=== PATIENT | female | born 1970 | race Caucasian/White ===

== ENCOUNTER 2025-05-28 08:53 | Outpatient (REF) | payer OTHER, SELFPAY ==
--- NOTE | ~2025-05-28 | XR_ITS ---
EXAMINATION: XR ANKLE, left CLINICAL INFORMATION: M25.572 - Pain in left ankle and joints of left foot COMPARISON: None available. TECHNIQUE: AP, lateral, and mortise views lower extremity joint, ankle. FINDINGS: Ankle mortise is congruent. There is no widening of the syndesmosis. Talar dome is intact. There are small to medium sized Achilles tendon and plantar fascial calcaneal enthesophyte(s). XR/XR ankle LT min 3V IMPRESSION: There are calcaneal spurs, a nonspecific finding. Electronically signed by: Alexander Mullins MD 05/28/2025 11:21 AM EST
--- NOTE | ~2025-05-28 | XR_ITS ---
Exam: XR FOOT 3 OR MORE VIEWS BILATERAL, bilateral foot x-rays TECHNIQUE: AP, OBL and lateral views lower extremity, bilateral feet INDICATION: M72.2 - Plantar fascial fibromatosis COMPARISON: None available. FINDINGS: RIGHT FOOT: Zidgd-lg-thverspn sized calcaneal enthesophytes are present at the Achilles tendon and plantar fascial attachments onto calcaneus. No acute fractures are identified. No degenerative joint disease is seen. There is no joint diastases or malalignment. LEFT FOOT: Small medium sized calcaneal enthesophytes are evident at the Achilles tendon and plantar fascial attachments. No acute fractures are identified. No degenerative joint disease is seen. There is no joint diastases or malalignment. XR/XR Foot Luis 3V IMPRESSION: Right foot: There calcaneal spurs at the Achilles tendon and plantar fascial attachments, a nonspecific finding. Left foot: There calcaneal spurs at the Achilles tendon and plantar fascial attachments, a nonspecific finding. Electronically signed by: Alexander Mullins MD 05/28/2025 11:26 AM GARCÍA
== END 2025-05-28 08:54 | disposition home or self-care (01) ==
LOC: HO.XRAY 08:53
PROVIDERS: PCP Internal Medicine; Visit Provider Student in an Organized Health Care Education/Training Program
DX: S93.402A Sprain of unspecified ligament of left ankle, initial encounter (principal); M72.2 Plantar fascial fibromatosis; M79.671 Pain in right foot; M79.672 Pain in left foot; M25.572 Pain in left ankle and joints of left foot; M25.371 Other instability, right ankle; M25.372 Other instability, left ankle; M77.31 Calcaneal spur, right foot; M77.32 Calcaneal spur, left foot; X58.XXXA Exposure to other specified factors, initial encounter; Y93.02 Activity, running
CPT/HCPCS: 73610; 73630

== ENCOUNTER 2025-05-28 08:53 | Outpatient (AMB) | payer OTHER, SELFPAY ==
--- OUTSIDE RECORDS SUMMARY | 2024-05-29 04:00 | XMS_ITS ---
Author Organization Milvia Iqbal MD Address [address] [place] [phone] Care Team Providers Care Commercial Leasing Agent Name Role Phone Milvia Iqabl Primary Care Provider REASON FOR VISIT 6m f/u SVT Encounters Encounter Location Date Provider Diagnosis Milvia Iqbal MD [address] JASEN TE [address] [place] [phone] 05/29/2024 Milvia Iqbal Plan Of Treatment Next Appt Details Provider Name:Milvia Iqbal , 12/06/2025 03:45:00 PM, [address] [place] [address], [phone], Progress Notes * JACOBDion CROUCHVipulOB:1970 (54 yo F)Acc No.[id number]:05/29/2024 Progress Notes Patient: Myra VICENTE Provider: Jose Manuel Iqbal MD :1970 A ge:53 Y S ex:Female Date:05/29/2024 Address:[address] [place], [place] [phone] Subjective: * Chief Complaints: * 1 . [...] Electronic signature of Kailyn Iqbal MD on 05/28/2025 at 09:01 AM EST Sign off status: Pending * Provider: Jose Manuel Iqbal MD Date: 07/29/2023 Generated for Jose Enrique love/Marybeth/Red on: 07/28/2024 09:01 AM EST
--- OUTSIDE RECORDS SUMMARY | 2024-11-05 03:15 | XMS_ITS ---
Author Organization [facility] [address] [address] Address [address] [place] [address] Care Team Providers Care Racing Board Marker Name Role Phone JOSEFINA RALPH Primary Care Provider [phone] DONYA KNOX Unavailable [phone] Encounters Encounter Location Date Provider Diagnosis [facility] [address] [facility] [address] [place] [phone] 11/05/2024 DONYA KNOX Plan Of Treatment No Information Progress Notes * Felicia BROWNOB:1970 (54 yo F)Acc No.[id number]:11/05/2024 Patient: Myra Dorantes Provider: Nirav KNOX NP :1970 A ge:53 Y S ex:Female Date:11/05/2024 Address:[address] [place], [place] [phone] Pcp:JOSEFINA RALPH * Electronic signature of RAY KNOX on 05/28/2025 at 09:02 AM EST Sign off status: Pending * Provider: Nirav KNOX NP Date: 0 11/05/2024 Generated for Printi ng/Faxing/eTransmitting on: 1 07/28/2024 09:02 AM EST
--- OUTSIDE RECORDS SUMMARY | 2025-02-12 03:30 | XMS_ITS ---
Author Organization [facility] [address] Address [address] [place] [address] Care Team Providers Care User Interface Artist Name Role Phone JOSEFINA RALPH Primary Care Provider DONYA KNOX Unavailable [phone] Encounters Encounter Location Date Provider Diagnosis [facility] [address] [facility] [address] [place] [phone] 02/12/2025 DONYA KNOX Plan Of Treatment No Information Progress Notes * Felicia BROWNOB:1970 (54 yo F)Acc No.[id number]:02/12/2025 Patient: Dion Dorantesen Provider: Nirav KNOX NP :1970 A ge:54 Y S ex:Female Date:02/12/2025 Address:[address] [place], [place] [phone] Pcp:JOSEFINA RALPH * Electronic signature of RAY KNOX on 05/28/2025 at 09:01 AM EST Sign off status: Pending * Provider: Nirav KNOX NP Date: 0 02/12/2025 Generated for Printi ng/Faxing/eTransmitting on: 1 07/28/2024 09:01 AM EST
--- OUTSIDE RECORDS SUMMARY | 2025-05-28 09:01 | XMS_ITS | Clinical Summary ---
Author Organization [facility] Address [address] [place] [address] Care Team Providers Care Electric Scoop Operator Name Role Phone Milvia Iqbal MD Primary Care Provider [phone] Allergies Active Allergy Reactions Criticality Noted Date Comments Penicillins 04/16/2017 Medications Medication Sig Dispensed Refills Start Date End Date Status Cholecalciferol (VITAMIN D3) 2000 UNITS capsule TAKE ONE CAPSULE BY MOUTH EVERY DAY 3 01/11/2017 Active omeprazole (PRILOSEC) 20 MG capsule Take 20 mg by mouth 2 (two) times a day. 1 03/08/2017 Active levETIRAcetam (KEPPRA) 250 MG tablet Take 250 mg by mouth 2 (two) times a day. 0 Active levETIRAcetam (KEPPRA) 1000 MG tablet Take 1,000 mg by mouth. 0 Active sulfamethoxazole-trime thoprim (BACTRIM DS) 800-160 MG per tablet Take 1 tablet by mouth 2 (two) times a day. 0 Active phenazopyridine (PYRIDIUM) 200 MG tablet Take 200 mg by mouth 3 (three) times a day. 0 06/29/2021 Active nitrofurantoin, macrocrystal-monohydra te, (MACROBID) 100 MG capsule TAKE ONE CAPSULE BY MOUTH TWICE A DAY FOR 7 DAYS 0 06/05/2021 Active metFORMIN (GLUCOPHAGE) tablet 500 mg 500 mg. 0 05/28/2016 Active ibuprofen 800 MG tablet Take 800 mg by mouth. 0 Active Lgqxbyeqps-LBDA-Fnixjm ne 50-300-40 MG CAPS 1 capsule by mouth, as needed, every 4 hours 0 05/28/2016 Active Hospital, Clinic, or Other Facility Administered Medication Ordered Dose Route Frequency Start Date End Date Status lidocaine (PF) (XYLOCAINE-MPF) 1 % injection 10 mgIndications:Left shoulder pain, unspecified chronicity,Subacromial bursitis of left shoulder joint 10 mg IX Once 08/16/2021 Active Active Problems Problem Noted Date Diagnosed Date Nontraumatic incomplete tear of left rotator cuf f 12/13/2021 Impingement syndrome of left shoulder 12/13/2021 Subacromial bursitis of left shoulder joint 03/2022 Chronic right shoulder pain 07/16/2017 Adhesive capsulitis of right shoulder 07/16/2017 Family History Medical History Relation Name Comments Hypertension Brother Cancer Father Arthritis Mother Diabetes Mother Hypertension Mother Relation Name Status Comments Brother Father Mother Social History Tobacco Use Types Packs/Day Years Used Date Smoking Tobacco: Never Smokeless Tobacco: Never Alcohol Use Standard Drinks/Week Comments Yes 0 (1 standard drink = 0.6 oz pur e alcohol) social Sex and Gender Information Value Date Recorded Sex Assigned at Not on file Gender Identity Not on file Sexual Orientation Not on file Job Start Date Occupation Industry Not on file Not on file Not on file Last Filed Vital Signs Vital Sign Reading Time Taken Comments Blood Pressure - - Pulse - - Temperature - - Respiratory Rate - - Oxygen Saturation - - Inhaled Oxygen Concentration - - Weight 84.4 kg (186 lb) 06/18/2022 12:56 PM EST Height 175.3 cm (5' 9 ) 06/18/2022 12:56 PM EST Body Mass Index 27.47 06/18/2022 12:56 PM EST Plan of Treatment Health Maintenance Due Date Last Done Comments Hepatitis B Vaccines (1 of 3 - 3-dose series) 1970 Hepatitis C Screening 1970 COVID-19 Vaccine (#1) 06/25/1972 Depression Screening 1983 BMI Counseling 12/24/1989 Preventative Health Evaluation 12/24/1989 DTap / Tdap / Td (1 - Tdap) 12/24/1990 Cervical Cancer Screening (P ap Smear) 12/24/1992 Colon Cancer Screening (Colonoscopy) 12/24/2016 Breast Cancer Screening (Mammogram) 12/24/2021 Shingrix-Zoster Vaccine (1 of 2) 12/24/2021 Influenza Vaccine (#1) 2025 Pneumococcal Vaccine Aged Out No long er eligible based on patient's age to complete this topic RSV Ped < 20 months Aged Out No longe r eligible based on patient's age to complete this topic Care Teams Electric Scoop Operator Relationship Specialty Start Date End Date Milvia Iqbal MD [address] [address] PCP - General Internal Medicine 03/18/17
--- OUTSIDE RECORDS SUMMARY | 2025-05-28 09:01 | XMS_ITS ---
Author Name [facility] Organization Unknown Care Team Organization Name Specialty Phone Email Start Date End Da joan [facility] Miguel Rouse Primary [facility] 05/15/2022 4
--- OUTSIDE RECORDS SUMMARY | 2025-05-28 09:01 | XMS_ITS | Clinical Summary ---
Author Organization [address] Address [address] [place] [phone] Phone Care Team Providers Care Field Aide Name Role Phone Miliva Iqbal MD Primary Care Provider [phone] Surgical History Surgery Date Site/Laterality Comments APPENDECTOMY PROCEDURE: HISTORICAL APPENDECTOMY HERNIA REPAIR PROCEDURE: HISTORICAL HERNIA REPAIR/ING Medical History Medical History Date Comments Complex partial epilepsy (CM S/HCC V24, CMS/HCC V28) DX:Complex partial epilepsy (HCC) PCOS (polycystic ovarian syndrome) DX:PCOS (polycystic ovarian syndrome) Complex partial epilepsy (CM S/HCC V24, CMS/HCC V28) DX:Complex partial epilepsy (HCC) Family History Medical History Relation Name Comments Other: AFIB Father Relation Name Status Comments Father Social History Tobacco Use Types Packs/Day Years Used Date Smoking Tobacco: Never Smokeless Tobacco: Never Alcohol Use Standard Drinks/Week Comments Yes 0 (1 standard drink = 0.6 oz pur e alcohol) Comments No Sex and Gender Information Value Date Recorded Sex Assigned at Not on file Legal Sex Female 8:55 PM EST Gender Identity Not on file Sexual Orientation Not on file Obstetrics History Para Term AB IAB SAB Ectopic Multiple Livin g Live Births 2 Last Filed Vital Signs Vital Sign Reading Time Taken Comments Blood Pressure 110/70 08/06/2023 10:29 AM EST Si tting L Arm Pulse 79 08/06/2023 10:29 AM EST Temperature - - Respiratory Rate - - Oxygen Saturation - - Inhaled Oxygen Concentration - - Weight 81.6 kg (180 lb) 01/25/2025 7:39 AM EDT Height 175.3 cm (5' 9 ) 01/25/2025 7:39 AM EDT Body Mass Index 26.58 01/25/2025 7:39 AM EDT Plan of Treatment Health Maintenance Due Date Last Done Comments DTaP,Tdap,and Td Vaccines (1 - Tdap) 12/24/1990 HIV Screening 08/07/2019 Social Influencers of Health Screening 08/07/2019 Pneumococcal Vaccine: 50+ Years (1 of 1 - PCV) 12/24/2021 Zoster Vaccines (1 of 2) 12/24/2021 Depression Screening 07/08/2024 Hepatitis B Vaccines (2 of 3 - 19+ 3-dose series) 02/18/2025 01/21/2025 COVID-19 Vaccine (3 - 2024-26 season) 2025 11/10/2020, 10/20/2020 Influenza Vaccine (#1) 2025 05/25/2020, 2014 Colorectal Cancer Screening: Colonoscopy 11/28/2026 Breast Cancer Screening 01/25/2027 01/26/20, 01/15/2023, 01/12/2022, Additional history exists Cholesterol Screening (Lipid Panel) 10/05/2029 10/05/2024 Cervical Cancer Screening: HPV 02/02/2030 02/02/2025 RSV Immunization Adult Patients (1 - 1-dose 75+ series) 12/24/2046 Hepatitis C Screening Completed 10/05/2024 MMR Vaccines Aged Out 01/21/2025 No longer eligi ble based on patient's age to complete this topic HIB Vaccines Aged Out No longer eligi ble based on patient's age to complete this topic HPV Vaccines Aged Out No longer eligi ble based on patient's age to complete this topic Hepatitis A Vaccines Aged Out No long er eligible based on patient's age to complete this topic IPV Vaccines Aged Out No longer eligi ble based on patient's age to complete this topic Meningococcal ACWY Vaccine Aged Out N o longer eligible based on patient's age to complete this topic Meningococcal B Vaccine Aged Out No l onger eligible based on patient's age to complete this topic RSV Immunization Patients Under 20 months Aged Out No longer eligible based on patient's age to complete this topic Varicella Vaccines Aged Out No longer eligible based on patient's age to complete this topic Procedures Procedure Name Priority Date/Time Associated Diagnosis Comments HPV WITH REFLEX GENOTYPE Routine 02/02/2025 12:00 AM EDT Encounter for gynecological examination (general) (routine) without abnormal findings MG MAMMO DIGITAL SCREENING W MARVIN BILAT Routine 01/25/2025 7:39 AM EDT Encounter for screening mammogram for breast cancer LIPID PANEL WITH REFLEX TO DIRECT LDL Routine 10/05/2024 8:03 AM EDT Polycystic ovaries Screening for lipoid disorders Avitaminosis D Routine general medical examination at a health care facility Screening for thyroid disorder Screening for diabetes mellitus HEPATITIS C ANTIBODY Routine 10/05/2024 8:02 AM EDT Polycystic ovaries Screening for lipoid disorders Avitaminosis D Routine general medical examination at a health care facility Screening for thyroid disorder Screening for diabetes mellitus Screening examination for poliomyelitis from Last 3 Months or Most Recently Relevant to Health Maintenance Results * HPV with reflex genotype (02/02/2025 12:00 AM EDT) HPV Negative Negative LAB MICROBIOLOGY METHOD 02/10/2025 1:46 PM EDT [facility] Brushing/Spatula Cervix uteri structure / Unknown 02/02/2025 02/08/2025 12:11 PM EDT us Vaishnavi Pereyra MD LAB MOLECULAR DIAGNOSTIC S ORDERABLES Final Result [facility] [address] [place] [id number], * MG Mammo Digital Screening w Marvin bilat (01/25/2025 7:39 AM EDT) Anatomical Region Laterality Modality Breast Bilateral Mammography 01/25/2025 3:41 PM EDT Impressions 01/25/2025 3:42 PM EDT No evidence of breast malignancy. BI-RADS CATEGORY: 1 - NEGATIVE RECOMMENDATION: Screening bilateral mammogram is recommended in 1 year. Mammo Location: [facility], [address] [place], [place], [address], . -------- FINAL REPORT -------- Dictated By: Janette Mckeon Dictated Date: 01/25/2025 15:41 ET Assigned Physician: Janette Mckeon Reviewed and Electronically Signed By: Janette Mckeon Signed Date: 01/25/2025 15:42 ET Workstation ID: [id number] Transcribed By: Self Edit Transcribed Date: 01/25/2025 15:41 ET Narrative 01/25/2025 3:42 PM EDT CLINICAL: 54 years old, Female, routine annual exam. COMPARISON: 01/23/2024, 01/14/2023, 01/12/2022, 01/11/2021 and 01/06/2020 TECHNIQUE: Bilateral MLO and CC views were obtained digitally with 3-D mammogram (digital breast tomosynthesis). Computer-aided detection was utilized in evaluation of this exam (CAD). FINDINGS: There is no evidence of suspicious mass or architectural distortion. No worrisome calcifications are evident. There has been no significant change from prior exam(s). BREAST DENSITY: B - There are scattered areas of fibroglandular density. Procedure Note Janette Mckeon MD - 01/25/2025 CLINICAL: 54 years old, Female, routine annual exam. COMPARISON: 01/23/2024, 01/14/2023, 01/12/2022, 01/11/2021 and 01/06/2020 TECHNIQUE: Bilateral MLO and CC views were obtained digitally with 3-Dmammogram (digital breast tomosynthesis). Computer-aided detection wasutilized in evaluation of this exam (CAD). FINDINGS: There is no evidence of suspicious mass or architectural distortion. Noworrisome calcifications are evident. There has been no significantchange from prior exam(s). BREAST DENSITY: B - There are scattered areas of fibroglandular density. IMPRESSION: No evidence of breast malignancy. BI-RADS CATEGORY: 1 - NEGATIVE RECOMMENDATION: Screening bilateral mammogram is recommended in 1 year. Mammo Location: [facility], [address] [place] [address], [id number], . -------- FINAL REPORT -------- Dictated By: Janette Mckeon Dictated Date: 01/25/2025 15:41 ET Assigned Physician: Janette Mckeon Reviewed and Electronically Signed By: Janette Mckeon Signed Date: 01/25/2025 15:42 ET Workstation ID: [id number] Transcribed By: Self Edit Transcribed Date: 01/25/2025 15:41 ET us Self Referral S[facility] IMG BI PROCEDURES Final Resul t * (ABNORMAL) Lipid panel with reflex to direct LDL (10/05/2024 8:03 AM EDT) Cholesterol 204(H) 0 - 200 mg/dL LAB CHEMISTRY METHOD 10/05/2024 9:21 AM EDT [facility] Triglycerides 52 0 - 150 mg/dL LAB CHEMISTRY METHOD 10/05/2024 9:21 AM EDT [facility] HDL 73 >=40 mg/dL LAB CHEMISTRY METHOD 10/05/2024 9:21 AM EDT [facility] LDL Calculated 121(H) 0 - 100 mg/dL LAB CHEMISTRY METHOD 10/05/2024 9:21 AM EDT [facility] VLDL Cholesterol Boris 10.4 mg/dL LAB CHEMISTRY METHOD 10/05/2024 9:21 AM EDT [facility] Non HDL Chol. (LDL+VLDL) 131 <145 mg/dL LAB CHEMISTRY METHOD 10/05/2024 9:21 AM EDT [facility] Chol/HDL Ratio 2.8 0.0 - 4.4 LAB CHEMISTRY METHOD 10/05/2024 9:21 AM T [facility] Blood Venous blood specimen / Unknown Venipuncture / Unknown 10/05/2024 8:03 AM EDT 10/05/2024 8:10 AM EDT us Victoria Armas [employer] LAB BLOOD ORDERABLES Final Re sult [facility] [address] [place] [address], [place] [phone] * Hepatitis C antibody (10/05/2024 8:02 AM EDT) Hepatitis C Antibody Negative Negative LAB CHEMISTRY METHOD 10/05/2024 11:00 AM EDT [facility] Blood Venous blood specimen / Unknown Venipuncture / Unknown 10/05/2024 8:02 AM EDT 10/05/2024 8:10 AM EDT us Milvia Iqbal MD LAB BLOOD ORDERABLES Final Res ult [facility] [address] [place] [address], [place] [phone] from Last 3 Months or Most Recently Relevant to Health Maintenance Insurance [employer] Advance Directives Documents on File Type Date Recorded Patient Marker Delivery Expl anation Health Care Decision (hx) 03/02/2020 AD [place] DIRECTIVE Health Care Decision (hx) 03/02/2020 AD PARISI DIRECTIVE Health Care Decision (hx) 03/02/2020 AD PARISI DIRECTIVE Health Care Decision (hx) 03/02/2020 AD PARISI DIRECTIVE Health Care Decision (hx) 03/02/2020 AD PARISI DIRECTIVE Health Care Decision (hx) 03/02/2020 AD PARISI DIRECTIVE Health Care Decision (hx) 03/02/2020 AD PARISI DIRECTIVE Health Care Decision (hx) 03/02/2020 AD PARISI DIRECTIVE Health Care Decision (hx) 03/02/2020 AD PARISI DIRECTIVE Health Care Decision (hx) 03/02/2020 AD PARISI DIRECTIVE Health Care Decision (hx) 03/02/2020 AD PARISI DIRECTIVE Health Care Decision (hx) 03/02/2020 AD PARISI DIRECTIVE Health Care Decision (hx) 03/02/2020 AD PARISI DIRECTIVE Health Care Decision (hx) 03/02/2020 AD PARISI DIRECTIVE Health Care Decision (hx) 03/02/2020 AD PARISI DIRECTIVE Health Care Decision (hx) 03/02/2020 AD PARISI DIRECTIVE Health Care Decision (hx) 03/02/2020 AD PARISI DIRECTIVE Health Care Decision (hx) 03/02/2020 AD PARISI DIRECTIVE Health Care Decision (hx) 03/02/2020 AD PARISI DIRECTIVE Health Care Decision (hx) 03/02/2020 AD PARISI DIRECTIVE Care Teams Field Aide Relationship Specialty Start Date End Date Milvia Iqbal MD [address] [place] [address] PCP - General Internal Medicine 11/18/12
--- OUTSIDE RECORDS SUMMARY | 2025-05-28 09:02 | XMS_ITS | Patient Health Record ---
Author Organization [facility] [address] Address [address] [place] [address] Care Team Providers Care Hospital Manager Name Role Phone RAMO JOSEFINA Primary Care Provider DONYA KNOX Unavailable [phone] PRATIBHA SMITH Unavailable [phone] Allergies Allergen (clinical drug ingredient) Drug/Non Drug Allergy documented on EMR Reaction Allergy Type Onset Date Status pcn (uncoded) Unknown Allergy Active Results Component Value Reference Range Flag Notes HEPATITIS C ANTIBODY Reviewed date:10/05/2024 04:47:52 PM Interpretation: Performing Lab: Notes/Report: Hepatitis C Antibody Negative Negative LUTEINIZING HORMONE Reviewed date:10/05/2024 04:48:16 PM Interpretation: Performing Lab: Notes/Report: UNTREATED 8.6 - 61.8 ON HRT 1.1 - 52.4 POSTMENOPAUSAL: LUTEAL PHASE 0.6 - 13.5 MIDCYCLE PEAK 22.8 - 76.1 FOLLICULAR PHASE 1.9 - 12.8 FEMALES NORMALLY MENSTRUATING: LH REFERENCE RANGES (MIU/ML) Luteinizing Hormone 31.6 See Comment mIU/mL FOLLICLE STIMULATING HORMONE Reviewed date:10/05/2024 04:48:10 PM Interpretation: Performing Lab: Notes/Report: Follicle Stimulating Hormone 75.2 See Comment mIU/mL FSH REFERENCE RANGES (MIU/ML) FEMALES NORMALLY MENSTRUATING: FOLLICULAR PHASE 2.3 - 12.6 MIDCYCLE PEAK 5.2 - 17.5 LUTEAL PHASE 1.7 - 9.5 POSTMENOPAUSAL: ON HRT 5.9 - 72.8 UNTREATED 12.7 - 132.2 HEMOGLOBIN A1C Reviewed date:10/05/2024 04:47:40 PM Interpretation: Performing Lab: Notes/Report: Hemoglobin A1C 5.2 <6.5 % Mean Bld Glu Estim. 103 URINALYSIS WITH REFLEX MICRO SCOPIC AND CULTURE Reviewed date:10/05/2024 04:47:48 PM Interpretation: Performing Lab: Notes/Report: Specific [place] Urine 1.014 1.003-1.030 pH, Urine 6.0 5.5, 6.0, 6.5, 7.0 pH Leukocytes, Urine 1+ Negative A Nitrite, Urine Negative Negative Protein, Urine Negative Glucose, Urine Negative Ketones, Urine Negative Urobilinogen, Urine 0.2 Bilirubin, Urine Negative Negative Blood, Urine Negative Negative RBC, Urine 0.7 0-4 /HPF WBC, Urine 12.0 0-4 /HPF H Squamous Epithelial, Urine 30 0-60 /LPF Bacteria, Urine Negative Negative /HPF Hyaline Casts, Urine 0.4 0-3 /LPF Non-Squamous Epithelial, Urine 2-5 Transitional epithelial cells. THYROID STIMULATING HORMONE Reviewed date:10/05/2024 04:48:10 PM Interpretation: Performing Lab: Notes/Report: TSH 0.95 0.40-4.00 mcIU/mL THYROXINE FREE Reviewed date:10/05/2024 04:48:10 PM Interpretation: Performing Lab: Notes/Report: Free T4 1.26 0.70-1.80 ng/dL VITAMIN D 25 HYDROXY Reviewed date:10/05/2024 04:48:04 PM Interpretation: Performing Lab: Notes/Report: Vit D, 25-Hydroxy 25.3 30.0-80.0 ng/mL L CBC WITH AUTO DIFFERENTIAL Reviewed date:10/05/2024 04:52:59 PM Interpretation: Performing Lab: Notes/Report: WBC 3.3 4.8-10.8 K/mcL L RBC 4.10 3.80-4.80 M/mcL Hemoglobin 12.2 11.5-16.0 g/dL Hematocrit 38.9 35.0-47.0 % MCV 95.6 79.0-98.0 FL MCH 30.0 27.0-32.0 pcg MCHC 31.4 32.0-37.0 g/dL L RDW 12.5 11.0-15.0 % Platelets 155 130-400 K/mcL MPV 12.1 7.0-11.0 FL H NRBC 0.0 <1.0 % NRBC Absolute 0.00 <0.10 K/mcL Neutrophils Relative 53.6 Lymphocytes Relative 29.3 Monocytes Relative 11.1 Eosinophils Relative 4.8 Basophils Relative 0.9 Immature Granulocytes Relative 0.3 Neutrophils Absolute 1.79 1.50-7.00 K/mcL Lymphocytes Absolute 0.98 1.00-5.00 K/mcL L Monocytes Absolute 0.37 0.20-1.00 K/mcL Eosinophils Absolute 0.16 0.00-0.50 K/mcL Basophils Absolute 0.03 0.00-0.20 K/mcL Immature Granulocytes Absolute 0.01 0.00-0.03 K/mcL DEHYDROEPIANDROSTERONE Reviewed date:10/11/2024 01:21:03 PM Interpretation: Performing Lab: Notes/Report: DHEA (Dehydroepiandrosterone), Unconjugated, LC/MS/MS 113 Adult Female Reference Ranges Pre-Menopausal Mid Follicular: 385-1143 ng/dL Surge: 345-2030 ng/dL Mid Luteal: 414-1295 ng/dL Post-Menopausal 77-851 ng/dL This test was developed and its analytical performance characteristics have been determined by [facility]. It has not been cleared or approved by the FDA. This assay has been validated pursuant to the CLIA regulations and is used for clinical purposes. Test Performed at: [facility] [address] [address] Nadia Leyva MD, PhD, JOSE ANTIMULLERIAN HORMONE Reviewed date:10/07/2024 01:43:49 PM Interpretation: Performing Lab: Notes/Report: Anti Mullerian Hormone (AMH) <0.08 No reference range available for females under 18 years or over 45 years. Test performed at [facility] [place] [address] Brionna Rand MD, PhD - [employer] ESTRADIOL Reviewed date:10/05/2024 04:48:16 PM Interpretation: Performing Lab: Notes/Report: Estradiol <11 See below pcg/mL ESTRADIOL REFERENCE RANGES (PG/ML) FEMALES NORMALLY MENSTRUATING: FOLLICULAR PHASE 21.4 - 164.8 MIDCYCLE PEAK 49.9 - 367.2 LUTEAL PHASE 40.2 - 259.0 POSTMENOPAUSAL: ON HRT <11 - 462.1 UNTREATED <11 - 58.3 Fulvestrant has been shown to cross-react with the estradiol assay and cause falsely elevated results. For patients being treated with fulvestrant, Estradiol ultrasensitive should be ordered. This test is performed by LC/MS and is not expected to show cross reactivity to fulvestrant. COMPREHENSIVE METABOLIC PANE L Reviewed date:10/05/2024 04:48:20 PM Interpretation: Performing Lab: Notes/Report: Sodium 142 133-145 mmol/L Potassium 4.5 3.5-5.5 mmol/L Chloride 107 96-110 mmol/L CO2 31 21-32 mmol/L Anion Gap 4 3-11 Glucose 84 70-100 mg/dL BUN 18 5-25 mg/dL Creatinine 0.73 0.50-1.10 mg/dL eGFR 99 >=60 mL/min/1.73m2 Calculation based on the Chronic Kidney Disease Epidemiology Collaboration (CKD-EPI) equation refit without adjustment for race. BUN/Creatinine Ratio 24.7 Calcium 9.4 8.5-10.5 mg/dL AST (SGOT) 33 10-42 unit/L ALT (SGPT) 53 10-60 unit/L Alkaline Phosphatase 79 42-121 unit/L Total Protein 6.4 6.0-8.0 g/dL Albumin 4.0 3.2-5.0 g/dL Total Bilirubin 0.4 0.0-1.4 mg/dL LIPID PANEL WITH REFLEX TO D IRECT LDL Reviewed date:10/05/2024 04:53:07 PM Interpretation: Performing Lab: Notes/Report: Cholesterol 204 0-200 mg/dL H Triglycerides 52 0-150 mg/dL HDL 73 >=40 mg/dL LDL Calculated 121 0-100 mg/dL H VLDL Cholesterol Boris 10.4 Non HDL Chol. (LDL+VLDL) 131 <145 mg/dL Chol/HDL Ratio 2.8 0.0-4.4 Reason For Referral No Information Medications Medication SIG (Take, Route, Fr equency, Duration) Notes Start Date End Date Status Mounjaro 10 MG/0.5ML Solution Pen-injector 10mg Subcutaneous weekly; Duration: 30 days Active Zepbound 10 MG/0.5ML Solution Auto-injector INJECT 1 PEN SUBCUTANEOUSLY ONCE A WEEK; Duration: 28 Active Keppra 500 MG Tablet 1 tablet Orally meseret ry 12 hrs; Duration: 30 day(s) Active Metoprolol Succinate ER 25 MG Tablet Extended Release 24 Hour 1 tablet Orally Once a day Active Social History Tobacco Use: Social History Observation Description Date Details (start date - stop date) Never Smoker NA - NA Social History Drugs/Alcohol: Social Info Question Answer Notes Drugs Have you used drugs other than those for medical reasons in the past 12 months? No Tobacco Use: Social Info Question Answer Notes Tobacco Use/Smoking Are you a nonsmoker Additional Details Category Social Info Options Details Drugs/Alcohol: Do you smoke marijuana? De nies Do you drink alcohol? No Problems Problem Type SNOMED Code ICD Code Onset Dates Problem Status W/U Status Risk Notes Problem Hypothyroidism (10036566) Hypothyroidism, unspecified (E03.9) Active confirmed Problem Vitamin D deficiency (71460478) Vitamin D deficiency, unspecified (E55.9) Active confirmed Problem Overweight (949537784) Overweight (E66.3) Active confirmed Problem Obesity (841464541) Other obesity (E66.8) Active confirmed Problem Hyperlipidemia (52626594) Hyperlipidemia, unspecified (E78.5) Active confirmed Problem Paroxysmal atrial fibrillation (765436305) Paroxysmal atrial fibrillation (I48.0) Active confirmed Problem Chronic fatigue syndrome (disorder) (31907763) Chronic fatigue, unspecified (R53.82) Active confirmed Problem Body mass index 30+ - obesity (817016421) Body mass index (BMI) 30.0-30.9, adult (Z68.30) Active confirmed Problem Body mass index 30.00 to 34.99 (260220962866645) Body mass index (BMI) 31.0-31.9, adult (Z68.31) Active confirmed Problem Adult health examination (580616133) Adult general medical exam (Z00.00) Active confirmed Problem Vitamin D deficiency (66397162) Vitamin D deficiency (E55.9) Active confirmed Problem Seizure disorder (982994443) Seizure disorder (G40.909) Active confirmed Problem Diabetes mellitus screening (887151270) Diabetes mellitus screening (Z13.1) Active confirmed Problem Use of anticoagulation (728196037) Chronic anticoagulation (Z79.01) Active confirmed Problem Polycystic ovary syndrome (disorder) (120694929) PCOS (polycystic ovarian syndrome) (E28.2) Active confirmed Problem Overweight (271391747) Overweight (BMI 25.0-29.9) (E66.3) Active confirmed Problem Thyromegaly (7010946) Thyromegaly (E01.0) Active confirmed Problem Atrial fibrillation (18523517) Atrial fibrillation with RVR (I48.91) Active confirmed Problem Perimenopause (206100955) Perimenopause (N95.1) Active confirmed Problem Endocrine/metaboli c screening (607934349) Encounter for screening for endocrine disorder (Z13.29) Active confirmed Problem Lipid screening (581151016) Lipid screening (Z13.220) Active confirmed Vital Signs Heart Rate 74 /min 12/31/2024 Oximetry 99 % 12/31/2024 Blood pressure diastolic 76 mm Hg 12/31/2024 Height 69 in 12/31/2024 Blood pressure systolic 112 mm Hg 12/31/2024 Weight 186.3 lbs 12/31/2024 BMI 27.51 kg/m2 12/31/2024 Encounters Encounter Location Date Provider Diagnosis [facility] [address] [address] 07/16/2024 PRATIBHA SMITH Overweight E66.3 ; B MS 26.0-26.9,adult Z68.26 ; Nutritional counseling Z71.3 ; Paroxysmal atrial fibrillation I48.0 ; PCOS (polycystic ovarian syndrome) E28.2 and Seizure disorder G40.909 [facility] [address] [address] 09/17/2024 DONYA KNOX BMI 27.0-27.9,adult Z68.27 ; Overweight (BMI 25.0-29.9) E66.3 ; Dietary counseling and surveillance Z71.3 ; Paroxysmal atrial fibrillation I48.0 ; PCOS (polycystic ovarian syndrome) E28.2 ; Hypothyroidism, unspecified E03.9 and Perimenopause N95.1 [facility] [address] [address] 12/31/2024 DONYA KNOX BMI 27.0-27.9,adult Z68.27 ; Overweight (BMI 25.0-29.9) E66.3 ; Dietary counseling and surveillance Z71.3 ; Paroxysmal atrial fibrillation I48.0 ; PCOS (polycystic ovarian syndrome) E28.2 ; Hypothyroidism, unspecified E03.9 ; Perimenopause N95.1 and Encounter for examination of blood pressure without abnormal findings Z01.30 [facility] [address] [facility] [address] [place] [address] 07/07/2024 JOSEFINA ROUSE [facility] [address] [facility] [address] [place] [address] 07/16/2024 PRATIBHA MSITH [facility] [address] [facility] [address] [place] [address] 07/29/2024 PRATIBHA SMITH [facility] [address] [facility] [address] [place] [address] 09/22/2024 DONYA KNOX Assessments Encounter Date Diagnosis (ICD Code) Assessment Notes Treatment Notes Treatment Clinical Notes Section Notes 07/16/2024 Overweight (ICD-10 - E66.3) Patient is here for weight management follow-up. We focused on significance of healthy lifestyle changes. We talked about need to track steps with goal between 6000-10,000 steps daily, focus on portion control, read food labels, get adequate sleep between 7 to 8 hours, get adequate rest to the body, meditate, frequent nutritious meals including vegetables and healthy choices of lean meats, fish, and elimination of refined carbohydrates. We also talked about mindfulness and mindful eating. Particular focus was on continuing mindful eating and running for exercise. Total time spent with 30 minutes with greater than 50% spent on counseling and coordinating care. 07/16/2024: Weight 181 pounds, BMI 26.73. Seca scan completed today and interpreted with the patient. At this time prescribed Mounjaro 10 mg once weekly however has been off medication for the past 3 weeks due to lapse of prior authorization. Overall has tolerated medication without side effects. We reviewed goals of diet and exercise and patient has good understanding. Plan at this time to begin Mounjaro 12.5 mg once weekly. Discussed proper use of medication and expected side effect profile including but not limited to nausea, constipation, abdominal pain, and heartburn. Will require new prior authorization. Otherwise patient will follow-up in office in approximately 4 weeks for further management. # Atrial fibrillation: Asymptomatic in office without chest pain or shortness of breath. Continue metoprolol succinate 25 mg once daily. No longer on Eliquis. Underwent cardiac ablation, follow-up with [facility] cardiology. Will continue to monitor. # Seizure disorder: Continue Keppra 500 mg 1 tablet every 12 hours. Will continue to monitor. All questions have been answered to patient's satisfaction. Patient verbalized understanding of diagnosis and treatments explained. Advised to call sooner prior to next visit it any questions/concerns arise. Case discussed with collaborating physician Han Rouse who reviewed the assessment and plan. Chart, medications, labs, vital signs reviewed. Dictation was accomplished with the use of [employer] voice recognition software, which is prone to medical misidentifications and grammatical errors. This are unintentional and the practitioner does try to identify and correct these, but some could still be present. Please do not hesitate to contact practitioner for clarification. 07/16/2024 BMI 26.0-26.9,adult (ICD-10 - Z68.26) Patient is here for weight management follow-up. We focused on significance of healthy lifestyle changes. We talked about need to track steps with goal between 6000-10,000 steps daily, focus on portion control, read food labels, get adequate sleep between 7 to 8 hours, get adequate rest to the body, meditate, frequent nutritious meals including vegetables and healthy choices of lean meats, fish, and elimination of refined carbohydrates. We also talked about mindfulness and mindful eating. Particular focus was on continuing mindful eating and running for exercise. Total time spent with 30 minutes with greater than 50% spent on counseling and coordinating care. 07/16/2024: Weight 181 pounds, BMI 26.73. Seca scan completed today and interpreted with the patient. At this time prescribed Mounjaro 10 mg once weekly however has been off medication for the past 3 weeks due to lapse of prior authorization. Overall has tolerated medication without side effects. We reviewed goals of diet and exercise and patient has good understanding. Plan at this time to begin Mounjaro 12.5 mg once weekly. Discussed proper use of medication and expected side effect profile including but not limited to nausea, constipation, abdominal pain, and heartburn. Will require new prior authorization. Otherwise patient will follow-up in office in approximately 4 weeks for further management. # Atrial fibrillation: Asymptomatic in office without chest pain or shortness of breath. Continue metoprolol succinate 25 mg once daily. No longer on Eliquis. Underwent cardiac ablation, follow-up with [facility] cardiology. Will continue to monitor. # Seizure disorder: Continue Keppra 500 mg 1 tablet every 12 hours. Will continue to monitor. All questions have been answered to patient's satisfaction. Patient verbalized understanding of diagnosis and treatments explained. Advised to call sooner prior to next visit it any questions/concerns arise. Case discussed with collaborating physician Han Rouse who reviewed the assessment and plan. Chart, medications, labs, vital signs reviewed. Dictation was accomplished with the use of [employer] voice recognition software, which is prone to medical misidentifications and grammatical errors. This are unintentional and the practitioner does try to identify and correct these, but some could still be present. Please do not hesitate to contact practitioner for clarification. 09/17/2024 BMI 27.0-27.9,adult (ICD-10 - Z68.27) #Weight Management 09/17/2024 _update comprehensive labs Check menopausal labs per request Continue Zepbound 12.5 for now She will look into insurance options and why it is causing her so much She is very frustrated with her weight loss progression Total time spent today was 30 minutes of which greater than 50% was spent on coordinating and counseling Patient has been found to be overweight with a BMI of (27). Patient has overweight class per BMI standards We are a board certified obesity and weight management practice Of note, some information is being carried forward from prior records for informational purposes only and is being cited so that efficiency, safety and quality of the patient's care is not compromised This note was prepared using voice recognition software and direct typing Please excuse inadvertent painter ski edge or typing errors, or uncorrected word substitutions Although every attempt has been made by the provider to proofread this document, occasional misspellings and typographical errors may still be present Due to the previous pandemic, and the use of personal protective equipment (PPE) This may decrease voice recognition accuracy Inadvertent painter ski edge errors may occur 12/31/2024 BMI 27.0-27.9,adult (ICD-10 - Z68.27) #Weight Management 12/31/2024 Discussed insurance company regulations and obstacles Continue Zepbound 12.5 for now She will look into insurance options and why it is causing her so much She is very frustrated with her weight loss progression Total time spent today was 30 minutes of which greater than 50% was spent on coordinating and counseling Patient has been found to be overweight with a BMI of (27). Patient has overweight class per BMI standards We are a board certified obesity and weight management practice Of note, some information is being carried forward from prior records for informational purposes only and is being cited so that efficiency, safety and quality of the patient's care is not compromised This note was prepared using voice recognition software and direct typing Please excuse inadvertent painter ski edge or typing errors, or uncorrected word substitutions Although every attempt has been made by the provider to proofread this document, occasional misspellings and typographical errors may still be present Due to the previous pandemic, and the use of personal protective equipment (PPE) This may decrease voice recognition accuracy Inadvertent painter ski edge errors may occur 12/31/2024 Overweight (BMI 25.0-29.9) (ICD-10 - E66.3) #Weight Management 12/31/2024 Discussed insurance company regulations and obstacles Continue Zepbound 12.5 for now She will look into insurance options and why it is causing her so much She is very frustrated with her weight loss progression Total time spent today was 30 minutes of which greater than 50% was spent on coordinating and counseling Patient has been found to be overweight with a BMI of (27). Patient has overweight class per BMI standards We are a board certified obesity and weight management practice Of note, some information is being carried forward from prior records for informational purposes only and is being cited so that efficiency, safety and quality of the patient's care is not compromised This note was prepared using voice recognition software and direct typing Please excuse inadvertent painter ski edge or typing errors, or uncorrected word substitutions Although every attempt has been made by the provider to proofread this document, occasional misspellings and typographical errors may still be present Due to the previous pandemic, and the use of personal protective equipment (PPE) This may decrease voice recognition accuracy Inadvertent painter ski edge errors may occur 12/31/2024 Dietary counseling and surveillance (ICD-10 - Z71.3) #Weight Management 12/31/2024 Discussed insurance company regulations and obstacles Continue Zepbound 12.5 for now She will look into insurance options and why it is causing her so much She is very frustrated with her weight loss progression Total time spent today was 30 minutes of which greater than 50% was spent on coordinating and counseling Patient has been found to be overweight with a BMI of (27). Patient has overweight class per BMI standards We are a board certified obesity and weight management practice Of note, some information is being carried forward from prior records for informational purposes only and is being cited so that efficiency, safety and quality of the patient's care is not compromised This note was prepared using voice recognition software and direct typing Please excuse inadvertent painter ski edge or typing errors, or uncorrected word substitutions Although every attempt has been made by the provider to proofread this document, occasional misspellings and typographical errors may still be present Due to the previous pandemic, and the use of personal protective equipment (PPE) This may decrease voice recognition accuracy Inadvertent painter ski edge errors may occur 09/17/2024 Overweight (BMI 25.0-29.9) (ICD-10 - E66.3) #Weight Management 09/17/2024 _update comprehensive labs Check menopausal labs per request Continue Zepbound 12.5 for now She will look into insurance options and why it is causing her so much She is very frustrated with her weight loss progression Total time spent today was 30 minutes of which greater than 50% was spent on coordinating and counseling Patient has been found to be overweight with a BMI of (27). Patient has overweight class per BMI standards We are a board certified obesity and weight management practice Of note, some information is being carried forward from prior records for informational purposes only and is being cited so that efficiency, safety and quality of the patient's care is not compromised This note was prepared using voice recognition software and direct typing Please excuse inadvertent painter ski edge or typing errors, or uncorrected word substitutions Although every attempt has been made by the provider to proofread this document, occasional misspellings and typographical errors may still be present Due to the previous pandemic, and the use of personal protective equipment (PPE) This may decrease voice recognition accuracy Inadvertent painter ski edge errors may occur 09/17/2024 Dietary counseling and surveillance (ICD-10 - Z71.3) #Weight Management 09/17/2024 _update comprehensive labs Check menopausal labs per request Continue Zepbound 12.5 for now She will look into insurance options and why it is causing her so much She is very frustrated with her weight loss progression Total time spent today was 30 minutes of which greater than 50% was spent on coordinating and counseling Patient has been found to be overweight with a BMI of (27). Patient has overweight class per BMI standards We are a board certified obesity and weight management practice Of note, some information is being carried forward from prior records for informational purposes only and is being cited so that efficiency, safety and quality of the patient's care is not compromised This note was prepared using voice recognition software and direct typing Please excuse inadvertent painter ski edge or typing errors, or uncorrected word substitutions Although every attempt has been made by the provider to proofread this document, occasional misspellings and typographical errors may still be present Due to the previous pandemic, and the use of personal protective equipment (PPE) This may decrease voice recognition accuracy Inadvertent painter ski edge errors may occur 07/16/2024 Nutritional counseling (ICD-10 - Z71.3) Patient is here for weight management follow-up. We focused on significance of healthy lifestyle changes. We talked about need to track steps with goal between 6000-10,000 steps daily, focus on portion control, read food labels, get adequate sleep between 7 to 8 hours, get adequate rest to the body, meditate, frequent nutritious meals including vegetables and healthy choices of lean meats, fish, and elimination of refined carbohydrates. We also talked about mindfulness and mindful eating. Particular focus was on continuing mindful eating and running for exercise. Total time spent with 30 minutes with greater than 50% spent on counseling and coordinating care. 07/16/2024: Weight 181 pounds, BMI 26.73. Seca scan completed today and interpreted with the patient. At this time prescribed Mounjaro 10 mg once weekly however has been off medication for the past 3 weeks due to lapse of prior authorization. Overall has tolerated medication without side effects. We reviewed goals of diet and exercise and patient has good understanding. Plan at this time to begin Mounjaro 12.5 mg once weekly. Discussed proper use of medication and expected side effect profile including but not limited to nausea, constipation, abdominal pain, and heartburn. Will require new prior authorization. Otherwise patient will follow-up in office in approximately 4 weeks for further management. # Atrial fibrillation: Asymptomatic in office without chest pain or shortness of breath. Continue metoprolol succinate 25 mg once daily. No longer on Eliquis. Underwent cardiac ablation, follow-up with [facility] cardiology. Will continue to monitor. # Seizure disorder: Continue Keppra 500 mg 1 tablet every 12 hours. Will continue to monitor. All questions have been answered to patient's satisfaction. Patient verbalized understanding of diagnosis and treatments explained. Advised to call sooner prior to next visit it any questions/concerns arise. Case discussed with collaborating physician Han Rouse who reviewed the assessment and plan. Chart, medications, labs, vital signs reviewed. Dictation was accomplished with the use of [employer] voice recognition software, which is prone to medical misidentifications and grammatical errors. This are unintentional and the practitioner does try to identify and correct these, but some could still be present. Please do not hesitate to contact practitioner for clarification. 07/16/2024 Paroxysmal atrial fibrillation (ICD-10 - I48.0) Patient is here for weight management follow-up. We focused on significance of healthy lifestyle changes. We talked about need to track steps with goal between 6000-10,000 steps daily, focus on portion control, read food labels, get adequate sleep between 7 to 8 hours, get adequate rest to the body, meditate, frequent nutritious meals including vegetables and healthy choices of lean meats, fish, and elimination of refined carbohydrates. We also talked about mindfulness and mindful eating. Particular focus was on continuing mindful eating and running for exercise. Total time spent with 30 minutes with greater than 50% spent on counseling and coordinating care. 07/16/2024: Weight 181 pounds, BMI 26.73. Seca scan completed today and interpreted with the patient. At this time prescribed Mounjaro 10 mg once weekly however has been off medication for the past 3 weeks due to lapse of prior authorization. Overall has tolerated medication without side effects. We reviewed goals of diet and exercise and patient has good understanding. Plan at this time to begin Mounjaro 12.5 mg once weekly. Discussed proper use of medication and expected side effect profile including but not limited to nausea, constipation, abdominal pain, and heartburn. Will require new prior authorization. Otherwise patient will follow-up in office in approximately 4 weeks for further management. # Atrial fibrillation: Asymptomatic in office without chest pain or shortness of breath. Continue metoprolol succinate 25 mg once daily. No longer on Eliquis. Underwent cardiac ablation, follow-up with [facility] cardiology. Will continue to monitor. # Seizure disorder: Continue Keppra 500 mg 1 tablet every 12 hours. Will continue to monitor. All questions have been answered to patient's satisfaction. Patient verbalized understanding of diagnosis and treatments explained. Advised to call sooner prior to next visit it any questions/concerns arise. Case discussed with collaborating physician Han Rouse who reviewed the assessment and plan. Chart, medications, labs, vital signs reviewed. Dictation was accomplished with the use of [employer] voice recognition software, which is prone to medical misidentifications and grammatical errors. This are unintentional and the practitioner does try to identify and correct these, but some could still be present. Please do not hesitate to contact practitioner for clarification. 09/17/2024 Paroxysmal atrial fibrillation (ICD-10 - I48.0) #Weight Management 09/17/2024 _update comprehensive labs Check menopausal labs per request Continue Zepbound 12.5 for now She will look into insurance options and why it is causing her so much She is very frustrated with her weight loss progression Total time spent today was 30 minutes of which greater than 50% was spent on coordinating and counseling Patient has been found to be overweight with a BMI of (27). Patient has overweight class per BMI standards We are a board certified obesity and weight management practice Of note, some information is being carried forward from prior records for informational purposes only and is being cited so that efficiency, safety and quality of the patient's care is not compromised This note was prepared using voice recognition software and direct typing Please excuse inadvertent painter ski edge or typing errors, or uncorrected word substitutions Although every attempt has been made by the provider to proofread this document, occasional misspellings and typographical errors may still be present Due to the previous pandemic, and the use of personal protective equipment (PPE) This may decrease voice recognition accuracy Inadvertent painter ski edge errors may occur 12/31/2024 Paroxysmal atrial fibrillation (ICD-10 - I48.0) #Weight Management 12/31/2024 Discussed insurance company regulations and obstacles Continue Zepbound 12.5 for now She will look into insurance options and why it is causing her so much She is very frustrated with her weight loss progression Total time spent today was 30 minutes of which greater than 50% was spent on coordinating and counseling Patient has been found to be overweight with a BMI of (27). Patient has overweight class per BMI standards We are a board certified obesity and weight management practice Of note, some information is being carried forward from prior records for informational purposes only and is being cited so that efficiency, safety and quality of the patient's care is not compromised This note was prepared using voice recognition software and direct typing Please excuse inadvertent painter ski edge or typing errors, or uncorrected word substitutions Although every attempt has been made by the provider to proofread this document, occasional misspellings and typographical errors may still be present Due to the previous pandemic, and the use of personal protective equipment (PPE) This may decrease voice recognition accuracy Inadvertent painter ski edge errors may occur 12/31/2024 PCOS (polycystic ovarian syndrome) (ICD-10 - E28.2) #Weight Management 12/31/2024 Discussed insurance company regulations and obstacles Continue Zepbound 12.5 for now She will look into insurance options and why it is causing her so much She is very frustrated with her weight loss progression Total time spent today was 30 minutes of which greater than 50% was spent on coordinating and counseling Patient has been found to be overweight with a BMI of (27). Patient has overweight class per BMI standards We are a board certified obesity and weight management practice Of note, some information is being carried forward from prior records for informational purposes only and is being cited so that efficiency, safety and quality of the patient's care is not compromised This note was prepared using voice recognition software and direct typing Please excuse inadvertent painter ski edge or typing errors, or uncorrected word substitutions Although every attempt has been made by the provider to proofread this document, occasional misspellings and typographical errors may still be present Due to the previous pandemic, and the use of personal protective equipment (PPE) This may decrease voice recognition accuracy Inadvertent painter ski edge errors may occur 07/16/2024 PCOS (polycystic ovarian syndrome) (ICD-10 - E28.2) Patient is here for weight management follow-up. We focused on significance of healthy lifestyle changes. We talked about need to track steps with goal between 6000-10,000 steps daily, focus on portion control, read food labels, get adequate sleep between 7 to 8 hours, get adequate rest to the body, meditate, frequent nutritious meals including vegetables and healthy choices of lean meats, fish, and elimination of refined carbohydrates. We also talked about mindfulness and mindful eating. Particular focus was on continuing mindful eating and running for exercise. Total time spent with 30 minutes with greater than 50% spent on counseling and coordinating care. 07/16/2024: Weight 181 pounds, BMI 26.73. Seca scan completed today and interpreted with the patient. At this time prescribed Mounjaro 10 mg once weekly however has been off medication for the past 3 weeks due to lapse of prior authorization. Overall has tolerated medication without side effects. We reviewed goals of diet and exercise and patient has good understanding. Plan at this time to begin Mounjaro 12.5 mg once weekly. Discussed proper use of medication and expected side effect profile including but not limited to nausea, constipation, abdominal pain, and heartburn. Will require new prior authorization. Otherwise patient will follow-up in office in approximately 4 weeks for further management. # Atrial fibrillation: Asymptomatic in office without chest pain or shortness of breath. Continue metoprolol succinate 25 mg once daily. No longer on Eliquis. Underwent cardiac ablation, follow-up with [facility] cardiology. Will continue to monitor. # Seizure disorder: Continue Keppra 500 mg 1 tablet every 12 hours. Will continue to monitor. All questions have been answered to patient's satisfaction. Patient verbalized understanding of diagnosis and treatments explained. Advised to call sooner prior to next visit it any questions/concerns arise. Case discussed with collaborating physician Han Rouse who reviewed the assessment and plan. Chart, medications, labs, vital signs reviewed. Dictation was accomplished with the use of [employer] voice recognition software, which is prone to medical misidentifications and grammatical errors. This are unintentional and the practitioner does try to identify and correct these, but some could still be present. Please do not hesitate to contact practitioner for clarification. 09/17/2024 PCOS (polycystic ovarian syndrome) (ICD-10 - E28.2) #Weight Management 09/17/2024 _update comprehensive labs Check menopausal labs per request Continue Zepbound 12.5 for now She will look into insurance options and why it is causing her so much She is very frustrated with her weight loss progression Total time spent today was 30 minutes of which greater than 50% was spent on coordinating and counseling Patient has been found to be overweight with a BMI of (27). Patient has overweight class per BMI standards We are a board certified obesity and weight management practice Of note, some information is being carried forward from prior records for informational purposes only and is being cited so that efficiency, safety and quality of the patient's care is not compromised This note was prepared using voice recognition software and direct typing Please excuse inadvertent painter ski edge or typing errors, or uncorrected word substitutions Although every attempt has been made by the provider to proofread this document, occasional misspellings and typographical errors may still be present Due to the previous pandemic, and the use of personal protective equipment (PPE) This may decrease voice recognition accuracy Inadvertent painter ski edge errors may occur 07/16/2024 Seizure disorder (ICD-10 - G40.909) Patient is here for weight management follow-up. We focused on significance of healthy lifestyle changes. We talked about need to track steps with goal between 6000-10,000 steps daily, focus on portion control, read food labels, get adequate sleep between 7 to 8 hours, get adequate rest to the body, meditate, frequent nutritious meals including vegetables and healthy choices of lean meats, fish, and elimination of refined carbohydrates. We also talked about mindfulness and mindful eating. Particular focus was on continuing mindful eating and running for exercise. Total time spent with 30 minutes with greater than 50% spent on counseling and coordinating care. 07/16/2024: Weight 181 pounds, BMI 26.73. Seca scan completed today and interpreted with the patient. At this time prescribed Mounjaro 10 mg once weekly however has been off medication for the past 3 weeks due to lapse of prior authorization. Overall has tolerated medication without side effects. We reviewed goals of diet and exercise and patient has good understanding. Plan at this time to begin Mounjaro 12.5 mg once weekly. Discussed proper use of medication and expected side effect profile including but not limited to nausea, constipation, abdominal pain, and heartburn. Will require new prior authorization. Otherwise patient will follow-up in office in approximately 4 weeks for further management. # Atrial fibrillation: Asymptomatic in office without chest pain or shortness of breath. Continue metoprolol succinate 25 mg once daily. No longer on Eliquis. Underwent cardiac ablation, follow-up with [facility] cardiology. Will continue to monitor. # Seizure disorder: Continue Keppra 500 mg 1 tablet every 12 hours. Will continue to monitor. All questions have been answered to patient's satisfaction. Patient verbalized understanding of diagnosis and treatments explained. Advised to call sooner prior to next visit it any questions/concerns arise. Case discussed with collaborating physician Han Rouse who reviewed the assessment and plan. Chart, medications, labs, vital signs reviewed. Dictation was accomplished with the use of [employer] voice recognition software, which is prone to medical misidentifications and grammatical errors. This are unintentional and the practitioner does try to identify and correct these, but some could still be present. Please do not hesitate to contact practitioner for clarification. 09/17/2024 Hypothyroidism, unspecified (ICD-10 - E03.9) #Weight Management 09/17/2024 _update comprehensive labs Check menopausal labs per request Continue Zepbound 12.5 for now She will look into insurance options and why it is causing her so much She is very frustrated with her weight loss progression Total time spent today was 30 minutes of which greater than 50% was spent on coordinating and counseling Patient has been found to be overweight with a BMI of (27). Patient has overweight class per BMI standards We are a board certified obesity and weight management practice Of note, some information is being carried forward from prior records for informational purposes only and is being cited so that efficiency, safety and quality of the patient's care is not compromised This note was prepared using voice recognition software and direct typing Please excuse inadvertent painter ski edge or typing errors, or uncorrected word substitutions Although every attempt has been made by the provider to proofread this document, occasional misspellings and typographical errors may still be present Due to the previous pandemic, and the use of personal protective equipment (PPE) This may decrease voice recognition accuracy Inadvertent painter ski edge errors may occur 12/31/2024 Hypothyroidism, unspecified (ICD-10 - E03.9) #Weight Management 12/31/2024 Discussed insurance company regulations and obstacles Continue Zepbound 12.5 for now She will look into insurance options and why it is causing her so much She is very frustrated with her weight loss progression Total time spent today was 30 minutes of which greater than 50% was spent on coordinating and counseling Patient has been found to be overweight with a BMI of (27). Patient has overweight class per BMI standards We are a board certified obesity and weight management practice Of note, some information is being carried forward from prior records for informational purposes only and is being cited so that efficiency, safety and quality of the patient's care is not compromised This note was prepared using voice recognition software and direct typing Please excuse inadvertent painter ski edge or typing errors, or uncorrected word substitutions Although every attempt has been made by the provider to proofread this document, occasional misspellings and typographical errors may still be present Due to the previous pandemic, and the use of personal protective equipment (PPE) This may decrease voice recognition accuracy Inadvertent painter ski edge errors may occur 12/31/2024 Perimenopause (ICD-10 - N95.1) #Weight Management 12/31/2024 Discussed insurance company regulations and obstacles Continue Zepbound 12.5 for now She will look into insurance options and why it is causing her so much She is very frustrated with her weight loss progression Total time spent today was 30 minutes of which greater than 50% was spent on coordinating and counseling Patient has been found to be overweight with a BMI of (27). Patient has overweight class per BMI standards We are a board certified obesity and weight management practice Of note, some information is being carried forward from prior records for informational purposes only and is being cited so that efficiency, safety and quality of the patient's care is not compromised This note was prepared using voice recognition software and direct typing Please excuse inadvertent painter ski edge or typing errors, or uncorrected word substitutions Although every attempt has been made by the provider to proofread this document, occasional misspellings and typographical errors may still be present Due to the previous pandemic, and the use of personal protective equipment (PPE) This may decrease voice recognition accuracy Inadvertent painter ski edge errors may occur 09/17/2024 Perimenopause (ICD-10 - N95.1) #Weight Management 09/17/2024 _update comprehensive labs Check menopausal labs per request Continue Zepbound 12.5 for now She will look into insurance options and why it is causing her so much She is very frustrated with her weight loss progression Total time spent today was 30 minutes of which greater than 50% was spent on coordinating and counseling Patient has been found to be overweight with a BMI of (27). Patient has overweight class per BMI standards We are a board certified obesity and weight management practice Of note, some information is being carried forward from prior records for informational purposes only and is being cited so that efficiency, safety and quality of the patient's care is not compromised This note was prepared using voice recognition software and direct typing Please excuse inadvertent painter ski edge or typing errors, or uncorrected word substitutions Although every attempt has been made by the provider to proofread this document, occasional misspellings and typographical errors may still be present Due to the previous pandemic, and the use of personal protective equipment (PPE) This may decrease voice recognition accuracy Inadvertent painter ski edge errors may occur 12/31/2024 Encounter for examination of blood pressure without abnormal findings (ICD-10 - Z01.30) #Weight Management 12/31/2024 Discussed insurance company regulations and obstacles Continue Zepbound 12.5 for now She will look into insurance options and why it is causing her so much She is very frustrated with her weight loss progression Total time spent today was 30 minutes of which greater than 50% was spent on coordinating and counseling Patient has been found to be overweight with a BMI of (27). Patient has overweight class per BMI standards We are a board certified obesity and weight management practice Of note, some information is being carried forward from prior records for informational purposes only and is being cited so that efficiency, safety and quality of the patient's care is not compromised This note was prepared using voice recognition software and direct typing Please excuse inadvertent painter ski edge or typing errors, or uncorrected word substitutions Although every attempt has been made by the provider to proofread this document, occasional misspellings and typographical errors may still be present Due to the previous pandemic, and the use of personal protective equipment (PPE) This may decrease voice recognition accuracy Inadvertent painter ski edge errors may occur Plan Of Treatment Pending Test Test Name Order Date Echocardiogram 08/21/2018 TSH 09/17/2024 Vitamin D, 1,25 Dihydroxy 10/02/2018 Lipid Panel 09/17/2024 EKG 01/13/2021 EKG 02/05/2018 25OH VITAMIN D 01/13/2021 CBC (COMPLETE BLOOD COUNT) 10/02/2018 CBC (COMPLETE BLOOD COUNT) 02/05/2018 COMPREHENSIVE METABOLIC PANEL 02/05/2018 COMPREHENSIVE METABOLIC PANEL 09/17/2024 COMPREHENSIVE METABOLIC PANEL 10/02/2018 FSH 09/17/2024 HEMOGLOBIN A1C 09/17/2024 HEMOGLOBIN A1C 02/05/2018 IRON BINDING CAPACITY, UNSATURATED 10/02 LH 09/17/2024 LIPID PANEL 02/05/2018 T4, TOTAL 01/13/2021 TSH 01/13/2021 TSH WITH REFLEX TO FT4 02/05/2018 URINALYSIS W/REFLEX CULTURE 09/17/2024 VITAMIN B12 02/05/2018 VITAMIN B12 01/13/2021 VITAMIN B12 10/02/2018 Chest 2 Views Frontal and Lat 07/18/2023 DHEA (Dehydroepiandrosterone) 09/17/2024 Ferritin Level 10/02/2018 CBC with Differential 09/17/2024 VITAMIN D, 25-HYDROXY 02/05/2018 VITAMIN D,25-OH,TOTAL,IA 09/17/2024 US Thyroid 04/12/2022 ESTRADIOL 09/17/2024 ANTI MULLERIAN HORMONE 09/17/2024 Future Test Test Name Order Date T4, TOTAL 05/24/2022 TSH 05/24/2022 Insurance Providers Payer Name Payer Address Payer Phone Subscriber Number Group Number Insured Name Patient Relationship to Insured Coverage Start Date Coverage End Date [employer] [address] [address] [place] [address] [id number] [phone] Myra Mccall Self - patient is the insured Medications Administered Medication Instructions Date of Administration Dosage Notes MICC B12 INJECTION 11/08/2020 1 . Inje ction given in left arm. Informed consent taken. Patient tolerated the procedure well and was discharged in stable condition. MICC B12 INJECTION 11/22/2020 1 LOT # [id number] MICC B12 INJECTION 12/13/2020 1 MICC B12 INJECTION 12/22/2020 1 MICC B12 INJECTION 01/13/2021 1 MICC B12 INJECTION 03/15/2021 MICC B12 INJECTION 05/09/2021 MICC B12 INJECTION 05/26/2021 1 MICC B12 INJECTION 06/28/2021 MICC B12 INJECTION 07/26/2021 MICC B12 INJECTION 10/11/2021 MICC B12 INJECTION 11/08/2021 1 MICC B12 INJECTION 01/25/2022 1 MICC B12 INJECTION 05/24/2022 MICC B12 INJECTION 07/12/2022 vitamin b12 10/03/2018 1 mL vitamin b12 11/19/2018 1 mL Medical (General) History Medical History History ICD Code seizures esophageal reflux Surgical History Surgery Date(Month/Year) hernia appendectomy
--- OUTSIDE RECORDS SUMMARY | 2025-05-28 09:02 | XMS_ITS | Patient Health Record ---
Author Organization [facility] Address [address] [id number] Care Team Providers Care Director Decision Support Name Role Phone [facility] Primary Care Provider Allergies Allergen (clinical drug ingredient) Drug/Non Drug Allergy documented on EMR Reaction Allergy Type Onset Date Status penicillin V Penicillin V Potassium Rash Drug Allergy Active Results Component Value Reference Range Notes CBC WITH AUTO DIFFERENTIAL Reviewed date:10/05/2024 09:39:11 AM Interpretation: Performing Lab: Notes/Report: WBC 3.3 4.8-10.8 K/mcL RBC 4.10 3.80-4.80 M/mcL Hemoglobin 12.2 11.5-16.0 g/dL Hematocrit 38.9 35.0-47.0 % MCV 95.6 79.0-98.0 FL MCH 30.0 27.0-32.0 pcg MCHC 31.4 32.0-37.0 g/dL RDW 12.5 11.0-15.0 % Platelets 155 130-400 K/mcL MPV 12.1 7.0-11.0 FL NRBC 0.0 <1.0 % NRBC Absolute 0.00 <0.10 K/mcL Neutrophils Relative 53.6 Lymphocytes Relative 29.3 Monocytes Relative 11.1 Eosinophils Relative 4.8 Basophils Relative 0.9 Immature Granulocytes Relative 0.3 Neutrophils Absolute 1.79 1.50-7.00 K/mcL Lymphocytes Absolute 0.98 1.00-5.00 K/mcL Monocytes Absolute 0.37 0.20-1.00 K/mcL Eosinophils Absolute 0.16 0.00-0.50 K/mcL Basophils Absolute 0.03 0.00-0.20 K/mcL Immature Granulocytes Absolute 0.01 0.00-0.03 K/mcL COMPREHENSIVE METABOLIC PANE L Reviewed date:10/05/2024 09:39:12 AM Interpretation: Performing Lab: Notes/Report: Sodium 142 133-145 [...] 3.2-5.0 g/dL Total Bilirubin 0.4 0.0-1.4 mg/dL ESTRADIOL Reviewed date:10/05/2024 09:39:12 AM Interpretation: Performing Lab: Notes/Report: Estradiol <11 See [...] expected to show cross reactivity to fulvestrant. FOLLICLE STIMULATING HORMONE Reviewed date:10/05/2024 10:18:48 AM Interpretation: Performing Lab: Notes/Report: Follicle Stimulating Hormone 75.2 See Comment mIU/mL FSH REFERENCE RANGES (MIU/ML) FEMALES NORMALLY MENSTRUATING: FOLLICULAR PHASE 2.3 - 12.6 MIDCYCLE PEAK 5.2 - 17.5 LUTEAL PHASE 1.7 - 9.5 POSTMENOPAUSAL: ON HRT 5.9 - 72.8 UNTREATED 12.7 - 132.2 HEPATITIS C ANTIBODY Reviewed date:10/05/2024 11:47:52 AM Interpretation: Performing Lab: Notes/Report: Hepatitis C Antibody Negative Negative LIPID PANEL WITH REFLEX TO D IRECT LDL Reviewed date:10/05/2024 09:39:12 AM Interpretation: Performing Lab: Notes/Report: Cholesterol 204 0-200 mg/dL Triglycerides 52 0-150 mg/dL HDL 73 >=40 mg/dL LDL Calculated 121 0-100 mg/dL VLDL Cholesterol Boris 10.4 Non HDL Chol. (LDL+VLDL) 131 <145 mg/dL Chol/HDL Ratio 2.8 0.0-4.4 LUTEINIZING HORMONE Reviewed date:10/05/2024 10:18:48 AM Interpretation: Performing Lab: Notes/Report: LH REFERENCE RANGES (MIU/ML) FEMALES NORMALLY MENSTRUATING: FOLLICULAR PHASE 1.9 - 12.8 MIDCYCLE PEAK 22.8 - 76.1 LUTEAL PHASE 0.6 - 13.5 POSTMENOPAUSAL: ON HRT 1.1 - 52.4 UNTREATED 8.6 - 61.8 Luteinizing Hormone 31.6 See Comment mIU/mL THYROID STIMULATING HORMONE Reviewed date:10/05/2024 11:47:52 AM Interpretation: Performing Lab: Notes/Report: TSH 0.95 0.40-4.00 mcIU/mL THYROXINE FREE Reviewed date:10/05/2024 10:46:26 AM Interpretation: Performing Lab: Notes/Report: Free T4 1.26 0.70-1.80 ng/dL VITAMIN D 25 HYDROXY Reviewed date:10/05/2024 11:47:52 AM Interpretation: Performing Lab: Notes/Report: Vit D, 25-Hydroxy 25.3 30.0-80.0 ng/mL MG MAMMO DIGITAL SCREENING W JOSELYN BILAT Reviewed date:01/27/2025 05:54:24 PM Interpretation: Performing Lab: Notes/Report: See Note [facility], a member of [facility] CLINICAL: 54 years old, Female, routine annual [...] year. Mammo Location: [facility], [address] [place] [address], [address], . -------- FINAL REPORT -------- Dictated By: Janette Mckeon Dictated Date: 01/25/2025 15:41 ET Assigned Physician: Janette Mckeon Reviewed and Electronically Signed By: Janette Mckeon Signed Date: 01/25/2025 15:42 ET Workstation ID: [id number] Transcribed By: Self Edit Transcribed Date: 01/25/2025 15:41 ET PAP SMEAR Reviewed date:02/09/2025 06:35:28 PM Interpretation: Performing Lab: Notes/Report: Interpretation Atypical squamous cells of undetermined significance General Categorization Epithelial cell abnormality, see interpretation Specimen Adequacy Satisfactory for evaluation, endocervical/transfor mation zone component present Pap Methodology Liquid Based Pap Test Disclaimer The Pap test is a screening test which carries an inherent false negative rate. These test results should be correlated with the patient's clinical findings and history. This Pap test was processed using an automated screening system. Technical cytopathology services provided by [facility], at [address] [place] [address] (CLIA # [id number]/Otto Coulter MD, Infection Control Coordinator.) Console Pap Interpretation Reported HPV WITH REFLEX GENOTYPE Reviewed date:02/10/2025 06:09:42 PM Interpretation: Performing Lab: Notes/Report: HPV Negative Negative URINALYSIS WITH REFLEX MICRO SCOPIC AND CULTURE Reviewed date:10/05/2024 11:47:52 AM Interpretation: Performing Lab: Notes/Report: Specific Charlo Urine 1.014 1.003-1.030 pH, Urine 6.0 5.5, 6.0, 6.5, 7.0 pH Leukocytes, Urine 1+ Negative Nitrite, Urine Negative Negative Protein, Urine Negative Glucose, Urine Negative Ketones, Urine Negative Urobilinogen, Urine 0.2 Bilirubin, Urine Negative Negative Blood, Urine Negative Negative RBC, Urine 0.7 0-4 /HPF WBC, Urine 12.0 0-4 /HPF Squamous Epithelial, Urine 30 0-60 /LPF Non-Squamous Epithelial, Urine 2-5 Transitional epithelial cells. Bacteria, Urine Negative Negative /HPF Hyaline Casts, Urine 0.4 0-3 /LPF HEMOGLOBIN A1C Reviewed date:10/07/2024 09:14:41 PM Interpretation: Performing Lab: Notes/Report: Hemoglobin A1C 5.2 <6.5 % Mean Bld Glu Estim. 103 DEHYDROEPIANDROSTERONE Reviewed date:10/12/2024 10:13:25 AM Interpretation: Performing Lab: Notes/Report: DHEA (Dehydroepiandrosterone), Unconjugated, LC/MS/MS 113 Adult Female Reference Ranges Pre-Menopausal Mid Follicular: 385-1143 ng/dL Surge: 345-2030 ng/dL Mid Luteal: 414-1295 ng/dL Post-Menopausal 77-851 ng/dL This test was developed and its analytical performance characteristics have been determined by [facility]. It has not been cleared or approved by the FDA. This assay has been validated pursuant to the CLIA regulations and is used for clinical purposes. Test Performed at: [facility] [address] [address] Nadia Leyva MD, PhD, JOSE CULTURE URINE Reviewed date:10/07/2024 09:14:41 PM Interpretation: Performing Lab: Notes/Report: Culture, Urine No growth ANTIMULLERIAN HORMONE Reviewed date:10/07/2024 09:14:41 PM Interpretation: Performing Lab: Notes/Report: Anti Mullerian Hormone (AMH) <0.08 No reference range available for females under 18 years or over 45 years. Test performed at [facility], [facility] [place] [address] [place] [address] Brionna Rand MD, PhD - Infection Control Coordinator Reason For Referral Diagnosis 1 Encounter for genera l adult medical examination without abnormal findings (Z00.00) Diagnosis 2 Plantar fascial fibr omatosis (M72.2) Referral Organization [facility] Referring Provider First Name Milvia Referring Provider Last Name Rasheed Referring Provider Speciality Internal M edicine Referred Provider PodCelina aguilar Referred Provider Specialty Podiatry General Notes Sofia SALCIDO 04/08 08:09:52 AM >faxed Referral Priority Routine Medications Medication SIG (Take, Route, Frequency, Duration) Notes Start Date End Date Status Zepbound 10 MG/0.5ML Subcutaneous; Duration: 28 Days Active Kfmqenbxut-ABVR-Bbtesqoi 50-325-40 MG TAKE 1 TABLET BY MOUTH EVERY 4 HOURS NEEDED; Duration: 14 Active levETIRAcetam 1000 MG TAKE 1 TABLET BY M OUTH EVERY DAY; Duration: 90 Active Mirena Active Ibuprofen 800 MG 1 tablet with food o r milk Orally Twice a day; Duration: 30 day(s) Active Veozah 45 MG 1 tablet Orally Once a day; Duration: 30 day(s) 11/26/2024 Active Metoprolol Succinate ER 25 MG Oral Not-Taking Immunizations Vaccine Route Administration Date Status Comme nts *Ccjzsddmt-Ancj-GM IM Intramuscular 05/25/2020 Administere d *Td (adult) preservative free Unknown 07/08/2011 Administered *Tdap Unknown 10/12/2022 Refused UVZBE-96-Azxnng Vaccine Unknown 10/20/2020 Administered PJRDQ-09-Kmntyk Vaccine Unknown 11/10/2020 Administered Social History Tobacco Use: Social History Observation Description Date Details (start date - stop date) Never Smoker NA - NA AUDIT-C (Standard) Question Answer Notes Did you have a drink contain ing alcohol in the past year? Yes How often did you have a dri nk containing alcohol in the past year? Never (0 point) How many drinks did you have on a typical day when you were drinking in the past year? 1 or 2 drinks (0 point) How often did you have six o r more drinks on one occasion in the past year? 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) Active confirmed Problem Polycystic ovary syndrome (disorder) (405028864) Polycystic ovarian syndrome (E28.2) Active confirmed Problem Vitamin D deficiency (46820077) Vitamin D deficiency, unspecified (E55.9) Active confirmed Problem Epilepsy (50151290) Epilepsy, unspecified, not intractable, without status epilepticus (G40.909) Active confirmed Problem Plantar fascial fibromatosis (11927546) Plantar fascial fibromatosis (M72.2) Active confirmed Problem Menopause (125207439) Menopausal and female climacteric states (N95.1) Active confirmed Problem BMI 25-29 - overweight (620798523) Body mass index (BMI) 29.0-29.9, adult (Z68.29) Active confirmed Problem Family history of malignant neoplasm of gastrointestinal tract (526231540) Family history of malignant neoplasm of digestive organs (Z80.0) Active confirmed Problem Family history of malignant neoplasm of breast (753076315) Family history of malignant neoplasm of breast (Z80.3) Active confirmed Problem Allergy to penicillin (25871749) Allergy status to penicillin (Z88.0) Active confirmed Problem Thrombophilia (856539197) Other thrombophilia (D68.69) Problem resolved confirmed Problem Paroxysmal atrial fibrillation (642646257) Paroxysmal atrial fibrillation (I48.0) Problem resolved confirmed Problem Supraventricular tachycardia (disorder) (7958856) Supraventricular tachycardia, unspecified (I47.10) Problem resolved confirmed Vital Signs Heart Rate 82 /min 11/26/2024 Temperature 96.9 degrees Fahrenheit 11/26/2024 Oximetry 98 % 11/26/2024 Blood pressure diastolic 70 mm Hg 11/26/2024 Height 69 in 11/26/2024 Blood pressure systolic 116 mm Hg 11/26/2024 Weight 185 lbs 11/26/2024 BMI 27.32 kg/m2 11/26/2024 Encounters Encounter Location Date Provider Diagnosis Milvia Iqbal MD [address] [id number] 11/26/2024 [facility] Epilepsy, unspecifie d, not intractable, without status epilepticus G40.909 ; Paroxysmal atrial fibrillation I48.0 ; Supraventricular tachycardia, unspecified I47.10 ; Polycystic ovarian syndrome E28.2 ; Family history of malignant neoplasm of digestive organs Z80.0 ; Family history of malignant neoplasm of breast Z80.3 ; Allergy status to penicillin Z88.0 ; Vitamin D deficiency, unspecified E55.9 ; Encounter for general adult medical examination without abnormal findings Z00.00 ; Encounter for screening for malignant neoplasm of colon Z12.11 ; Encounter for screening mammogram for malignant neoplasm of breast Z12.31 ; Encounter for screening for osteoporosis Z13.820 ; Encounter for screening for cardiovascular disorders Z13.6 ; Encounter for immunization Z23 ; Encounter for antibody response examination Z01.84 ; Encounter for screening for other viral diseases Z11.59 and Menopausal and female climacteric states N95.1 Milvia Iqbal MD [address] [id number] 10/21/2024 Milvia Iqbal MD [address] [id number] 03/16/2025 Milvia I[facility] MD [address] [id number] 03/26/2025 [facility]via [facility] MD [address] [id number] 04/09/2025 Milvia I[facility] MD [address] [id number] 04/30/2025 [facility] Encounter for genera l adult medical examination without abnormal findings Z00.00 Assessments Encounter Date Diagnosis (ICD Code) Assessment Notes Treatment Notes Treatment Clinical Notes Section Notes 11/26/2024 Epilepsy, unspecified, not intractable, without status epilepticus (ICD-10 - G40.909) Stable with current medical therapy. She has not had follow-up with neurology for some time and feels she is doing well as is. 04/30/2025 Encounter for general adult medical examination without abnormal findings (ICD-10 - Z00.00) 11/26/2024 Paroxysmal atrial fibrillation (ICD-10 - I48.0) Stable post ablation. 11/26/2024 Supraventricular tachycardia, unspecified (ICD-10 - I47.10) Stable post ablation. She occasionally has symptoms and uses abortive therapy on an as needed basis. 11/26/2024 Polycystic ovarian syndrome (ICD-10 - E28.2) Stable at present 11/26/2024 Family history of malignant neoplasm of digestive organs (ICD-10 - Z80.0) Up-to-date on colonoscopy 11/26/2024 Family history of malignant neoplasm of breast (ICD-10 - Z80.3) Up-to-date on mammogram 11/26/2024 Allergy status to penicillin (ICD-10 - Z88.0) Stable and unchanged 11/26/2024 Vitamin D deficiency, unspecified (ICD-10 - E55.9) Stable on prior labs as reviewed. Recommend vitamin D supplementation to maintain goal level of 30+ 11/26/2024 Encounter for general adult medical examination without abnormal findings (ICD-10 - Z00.00) General healthcare up-to-date. Check routine labs 11/26/2024 Encounter for screening for malignant neoplasm of colon (ICD-10 - Z12.11) Up-to-date on colon cancer screening 11/26/2024 Encounter for screening mammogram for malignant neoplasm of breast (ICD-10 - Z12.31) Up-to-date on breast cancer screening 11/26/2024 Encounter for screening for osteoporosis (ICD-10 - Z13.820) Up-to-date on osteoporosis screening 11/26/2024 Encounter for screening for cardiovascular disorders (ICD-10 - Z13.6) Blood pressure stable. Can check for comorbidity of hyperlipidemia and hyperglycemia to further assess risk 11/26/2024 Encounter for immunization (ICD-10 - Z23) Vaccines up-to-date 11/26/2024 Encounter for antibody response examination (ICD-10 - Z01.84) Titers have been checked in the past and there is immunity to rubeola 11/26/2024 Encounter for screening for other viral diseases (ICD-10 - Z11.59) Can screen for hepatitis C as per general recommendation 11/26/2024 Menopausal and female climacteric states (ICD-10 - N95.1) She continues to have hot flashes and secondary complications including fatigue and poor sleep. She can try medical therapy to see if it the treatment of hot flashes will improve her quality of life. She may be reached restricted in her choice of medical therapy by her insurance but can try a more directed therapy first 11/26/2024 Other This note was created with voice dictation recognition software and may contain errors of grammar and syntax. Also labs were reviewed with patient. Plan Of Treatment Pending Test Test Name Order Date 25OH VITAMIN D 03/16/2019 25OH VITAMIN D 10/12/2022 COMPLETE CBC WITH DIFF 10/12/2022 COMPLETE CBC WITH DIFF 03/16/2019 COMPLETE URINALYSIS 03/16/2019 COMPLETE URINALYSIS 10/12/2022 COMPREHENSIVE METABOLIC PANEL 10/12/2022 COMPREHENSIVE METABOLIC PANEL 03/16/2019 DHEA SULFATE 11/19/2022 ESTROGENS, TOTAL 11/19/2022 FERRITIN 03/16/2019 FSH 11/19/2022 LH 11/19/2022 LIPID PANEL W REFLEX TO DLDL 03/16/2019 LIPID PANEL W REFLEX TO DLDL 10/12/2022 METHYLMALONIC ACID, 03/16/2019 PROBNP 11/19/2022 PROGESTERONE 11/19/2022 RETICULOCYTE COUNT 03/16/2019 TESTOSTERONE 11/19/2022 TSH 10/12/2022 VITAMIN B12 03/16/2019 CBC 07/05/2021 CBC 01/10/2017 CBC 02/25/2017 CBC 03/05/2018 COMPREHENSIVE METABOLIC PANEL 03/05/2018 COMPREHENSIVE METABOLIC PANEL 01/10/2017 COMPREHENSIVE METABOLIC PANEL 02/25/2017 COMPREHENSIVE METABOLIC PANEL 07/05/2021 DHEA, UNCONJUGATED 02/25/2017 DHEA SULFATE 02/25/2017 DHEA SULFATE 03/05/2018 FOLLICLE STIMULATING HORMONE 03/05/2018 FREE T3 12/10/2022 GLYCOHEMOGLOBIN PROFILE 02/25/2017 LEVETIRACETAM KEPPRA 02/25/2017 LUTEINIZING HORMONE 03/05/2018 LIPID PROFILE 02/25/2017 LIPID PROFILE 03/05/2018 LIPID PROFILE 07/05/2021 MEASLES PROFILE 07/05/2021 FREE T4 12/10/2022 TSH 12/10/2022 URINALYSIS 07/05/2021 URINALYSIS 02/25/2017 URINALYSIS 03/05/2018 VITAMIN D, 25-HYDROXY 02/25/2017 VITAMIN D, 25-HYDROXY 03/05/2018 VITAMIN D, 25-HYDROXY 07/05/2021 [facility] 01/21/2024 ANTI-HEPATITIS C W/RFLX HCV QNT 10/13/19 23 MMR (MEASLES, MUMPS, RUBELLA) IGG TITER 03/16/2019 COVID and INFLUENZA Rapid Assay 11/20/19 23 Thyroxine (T4) Free, Direct-[id number] 11/21 Urinalysis, Complete-[id number] 11/26/2024 Urinalysis, Complete-[id number] 11/22/2023 TSH-[id number] 11/22/2023 CBC With Differential/Platelet- CBC With Differential/Platelet- Vitamin D, 11-Jahmkjg-[id number] 11/22/2023 Vitamin D, 33-Txuxivg-117397 11/26/2024 Comp. Metabolic Panel [id number] 2024 Comp. Metabolic Panel [phone] 2023 LP+Non-HDL Cholesterol-[id number] 11/22/2023 LP+Non-HDL Cholesterol-608811 11/26/2024 HCV Antibody-[id number] 11/26/2024 HCV Antibody-[id number] 11/22/2023 Next Appt Details Provider Name:Milvia Iqbal , 12/06/2025 03:45:00 PM, [address] [place] [address], [place] [address], [place], [place], [phone], Insurance Providers Payer Name Payer Address Payer Phone Subscriber Number Group Number Insured Name Patient Relationship to Insured Coverage Start Date Coverage End Date [employer] [place] P[place] [address] [place] [address] [phone] [id number] Myra Mccall Self - patient is the insured Medical (General) History Medical History History ICD Code Polycystic ovarian syndrome E28.2 Vitamin D deficiency, unspecified E55.9 Epilepsy, unspecified, not intractable, without status epilepticus G40.909 Family history of malignant neoplasm of breast Z80.3 Family history of malignant neoplasm of digestive organs Z80.0 Allergy status to penicillin Z88.0 Zoster without complications B02.9 Paroxysmal atrial fibrillation (resolved 11/26/2024) undefined Other thrombophilia (resolved 11/26/2024 ) Supraventricular tachycardia, unspecifie d (resolved 11/26/2024) Surgical History Surgery Date(Month/Year) Appendectomy shoulder arthroscopy 04/2017 Colporrhaphy 02/2020 Hospitalization History Reason Date(Month/Year) Shoulder surgery 04/2017 Atrial Fibrillation 08/2022
--- OUTSIDE RECORDS SUMMARY | 2025-05-28 09:02 | XMS_ITS | Encounter Summary ---
Author Organization [facility] Address [address] [place] [address] Care Team Providers Care Sales Agent Financial Report Service Name Role Phone Milvia Iqbal MD Primary Care Provider [phone] Encounter Details Date Type Department Care Team (Latest Contact Info) Description 02/03/2025 Lab Requisition [facility] - Main Lab [address] [place] [address] Vaishnavi Pereyra MD [address] [phone] Encounter for gynecological examination (general) (routine) without abnormal findings Social History Tobacco Use Types Packs/Day Years Used Date Smoking Tobacco: Never Smokeless Tobacco: Never Alcohol Use Standard Drinks/Week Comments Yes 0 (1 standard drink = 0.6 oz pur e alcohol) Comments No Sex and Gender Information Value Date Recorded Sex Assigned at Not on file Legal Sex Female 8:55 PM EST Gender Identity Not on file Sexual Orientation Not on file documented as of this encounter Plan of Treatment Not on file documented as of this encounter Procedures Procedure Name Priority Date/Time Associated Diagnosis Comments HPV WITH REFLEX GENOTYPE Routine 02/02/2025 12:00 AM EDT Encounter for gynecological examination (general) (routine) without abnormal findings PAP SMEAR Routine 02/02/2025 12:00 AM EDT Encounter for gynecological examination (general) (routine) without abnormal findings documented in this encounter Results * HPV with reflex genotype (02/02/2025 12:00 AM EDT) HPV Negative Negative LAB MICROBIOLOGY METHOD 02/10/2025 1:46 PM EDT [facility] Brushing/Spatula Cervix uteri structure / Unknown 02/02/2025 02/08/2025 12:11 PM EDT Vaishnavi Pereyra MD LAB MOLECULAR DIAGNOSTIC S ORDERABLES Final Result [facility] [address] [place] [address], * (ABNORMAL) Pap smear (02/02/2025 12:00 AM EDT) Interpretation Atypical squamous cells of undetermined significance(A) 02/08/2025 12:11 PM EDT [facility] General Categorization Epithelial cell abnormality, see interpretation 02/08/2025 12:11 PM EDT [facility] Specimen Adequacy Satisfactory for evaluation, endocervical/tra nsformation zone component present 02/08/2025 12:11 PM EDT [facility] Pap Methodology Liquid Based Pap Test 02/08/2025 12:11 PM EDT [facility] Disclaimer The Pap test is a screening test which carries an inherent false negative rate. These test results should be correlated with the patient's clinical findings and history. This Pap test was processed using an automated screening system. Technical cytopathology services provided by [facility], at [address] [place] [address], [place] [address] (CLIA # [id number]/Kuldip Coulter MD, Supervisor Taping.) 02/08/2025 12:11 PM EDT [facility] Console Pap Interpretation Reported 02/08/2025 12:11 PM [facility] Brushing/Spatula Cervix uteri structure / Unknown 02/02/2025 02/03/2025 7:14 AM EDT us Vaishnavi Pereyra MD LAB CYTOLOGY ORDERABLES Final Result [facility] ([facility]) [facility] [address] [place] [address], documented in this encounter Visit Diagnoses Diagnosis Encounter for gynecological examination (general) (routine) without abnormal findings documented in this encounter Care Teams Sales Agent Financial Report Service Relationship Specialty Start Date End Date Milvia Iqbal MD [address] [place] [id number] PCP - General Internal Medicine 11/18/12 documented as of this encounter
[2025-05-28 09:04] VITALS: BMI 28.0
--- NOTE | 2025-05-28 09:04 | A.OFFVIS_ITS ---
Vital Signs 05/28/25 09:04 Height 5 ft 10 in Weight 195 lb BMI 28.0 Intake Visit Reasons: Plantar fascial fibromatosis Intake Note: Myra is a 54 year old female who presents today as a new patient for an evaluation of her bilateral plantar fasciitis. Patient reports the pain runs through her whole left foot and ankle and for her right foot the pain is located in her heel where she has a bone spur located. She has tried dry needling, stretching exercises and has found no relief for her symptoms. Allergies Penicillins Allergy (Verified 05/28/25 09:04) hives Medication List - Last Reconciled 05/28/25 by Fawn Li DPM aspirin 81 mg PO DAILY aobvgasquy-yjbzhodgljdzc-wmej 50-325-40 mg tabs PO levetiracetam 1,000 mg PO DAILY methylprednisolone (Medrol (Arnel)) PO PER PKG DIR metoprolol tartrate 50 mg PO DAILY HPI Comments Details: The patient is a 54-year-old female with a PMH as seen below presenting with B/L foot pain and left ankle pain. The patient has a history of right foot plantar fasciitis, which was previously treated with a corticosteroid injection. The patient reports that the pain began after running a half marathon in November, during which the patient altered running form due to discomfort in the feet. She states the left foot is worse than the right. The patient states the left foot pain radiates towards the ankle and has been wrapping the ankle for support. The patient has been using various types of supportive footwear, and has tried recovery shoes without significant relief. The patient reports that the foot pronates causing an increase in pain while walking. Patient states she does at home plantar fascial stretching exercises. The patient has not had previous x- rays of the affected area. The patient has been using a sleeve and KT tape for ankle support. She denies any other pedal concerns. [facility], LATER [facility] Medical History (Updated 05/30/25 @ 18:19 by Fawn Li DPM) Left ankle sprain Chronic instability of ankle Left ankle pain Bilateral foot pain Calcaneal spur Plantar fasciitis Review of Systems Const Details: - Musculoskeletal: Reports B/L foot and left ankle pain. Physical Exam Vital Signs: BMI result Body Mass Index 28.0 Extrem Other: B/L LE Focused Physical Exam: Derm: No open lesions, abrasions, or wounds noted. No clinical signs of infection. No ecchymosis or discoloration noted. Skin supple and turgor WNL. Vasc: DP/PT pulses palpable. CFT < 3 secs. Temp gradient warm to warm. Pedal hair absent. No varicosities noted. No edema noted. Neuro: Protective sensations grossly intact. MSK: Pain on palpation to bilateral heels, worse to the left. Mild Pain on palpation to the left lateral ankle ligaments. Pain on palpation to the posterior aspect of the left heel. No pain on palpation to the right ankle. ROM of the forefoot WNL. Negative windlass mechanism. No crepitus or fluctuance noted. General: No no pedal edema Results Reviewed Results Reviewed: Ordered B/L foot and left ankle weightbearing 3 view xrays to be performed prior to next visit. Assessment & Plan Assessment & Plan (1) Bilateral foot pain: Code(s): M79.671 - Pain in right foot; M79.672 - Pain in left foot Category: Medical (2) Calcaneal spur: Code(s): M77.30 - Calcaneal spur, unspecified foot Category: Medical (3) Plantar fasciitis: Code(s): M72.2 - Plantar fascial fibromatosis Category: Medical (4) Left ankle sprain: Code(s): S93.402A - Sprain of unspecified ligament of left ankle, initial encounter Category: Medical Qualifiers: Encounter type: initial encounter (5) Chronic instability of ankle: Code(s): M25.373 - Other instability, unspecified ankle Category: Medical (6) Left ankle pain: Code(s): M25.572 - Pain in left ankle and joints of left foot Category: Medical Plan Patient was informed and verbally consented to the use of an ambient scribe for clinic note documentation during this visit. I discussed with the patient the likelihood of left chronic ankle instability and the potential for B/L plantar fasciitis and Achilles tendinitis contributing to the symptoms. We reviewed the benefits of starting with a Medrol Dosepak and the possibility of a corticosteroid injection if needed. I explained the importance of physical therapy and the use of an ankle brace to improve stability and prevent further injury. We also discussed the plan for x-rays to rule out any fractures or bone spurs. - Ordered bilateral foot and left ankle x-rays to be performed prior to next visit. - Prescribed a Medrol Dosepak to reduce inflammation and pain. - Advised patient to continue at home stretching exercises. - Continue wearing supportive shoe gear and inserts. - Avoid barefoot walking. - Provided patient with a lace up ankle stabilizing brace. - Consider PT and/or injection if symptoms persist. RTC in 3 weeks. Orders: Orders XR Foot Luis 3V 05/28/25 M72.2 - Plantar fascial fibromatosis, M77.30 - Calcaneal spur, unspecified foot, M79.671 - Pain in right foot, M79.672 - Pain in left foot XR ankle LT min 3V 05/28/25 M25.373 - Other instability, unspecified ankle, M25.572 - Pain in left ankle and joints of left foot, S93.402A - Sprain of unspecified ligament of left ankle, initial encounter Medications: New methylprednisolone (Medrol (Arnel)) PO PER PKG DIR 21 ea 0RF M25.373 - Other instability, unspecified ankle, M25.572 - Pain in left ankle and joints of left foot, M72.2 - Plantar fascial fibromatosis, M77.30 - Calcaneal spur, unspecified foot, M79.671 - Pain in right foot, M79.672 - Pain in left foot, S93.402A - Sprain of unspecified ligament of left ankle, initial encounter Coding Level of Care Code New Pt Level 4 (15560) Diagnoses Bilateral foot pain M79.671; M79.672 Calcaneal spur M77.30 Plantar fasciitis M72.2 Left ankle sprain S93.402A Encounter type: initial encounter Chronic instability of ankle M25.373 Left ankle pain M25.572 Time Spent (min) 47
== END 2025-05-28 10:04 | disposition home or self-care (01) ==
LOC: HO.HPODS 08:53
PROVIDERS: Visit Provider Student in an Organized Health Care Education/Training Program
DX: M79.671 Pain in right foot (principal); M79.672 Pain in left foot; M77.30 Calcaneal spur, unspecified foot; M72.2 Plantar fascial fibromatosis; S93.402A Sprain of unspecified ligament of left ankle, initial encounter; M25.373 Other instability, unspecified ankle; M25.572 Pain in left ankle and joints of left foot
CPT/HCPCS: 99204

== ENCOUNTER → 2025-05-28 10:42 | Outpatient (BNV) | payer OTHER, SELFPAY | PROVIDERS: PCP Internal Medicine; Visit Provider Radiology Diagnostic Radiology | DX: M77.32 Calcaneal spur, left foot (principal); M77.31 Calcaneal spur, right foot | CPT/HCPCS: 73610; 73630 ==

== ENCOUNTER 2025-06-11 13:53 | Outpatient (REF) | payer OTHER, SELFPAY ==
--- NOTE | ~2025-06-11 | XR_ITS ---
EXAMINATION: XR CLAVICLE, RIGHT CLINICAL INFORMATION: OTHER SPECIFIED ACQUIRED DEFORMITIES OF MUSCULOSKELETAL SYSTEM COMPARISON: None available. TECHNIQUE: AP and axial of the right clavicle. FINDINGS: There is mild widening of the with the AC joint with 2 small osseous fragments projecting in the region of the AC joint. There is no AC joint separation. SC joint is grossly intact. No other abnormalities are evident. XR/XR clavicle RT IMPRESSION: There are 2 small ossification projecting in the region of the mildly widened AC joint. Electronically signed by: Alexander Mullins MD 06/11/2025 02:32 PM EST
--- OUTSIDE RECORDS SUMMARY | 2025-06-11 18:16 | XMS_ITS | Clinical Summary ---
Author Organization [address] Address [address] [place] [phone] Phone Care Team Providers Care Poultry Scientist Name Role Phone Milvia Iqbal MD Primary Care Provider [phone] Surgical History Surgery Date Site/Laterality Comments APPENDECTOMY [...] LAB MICROBIOLOGY METHOD 02/10/2025 1:46 PM EDT [facility] Brushing/Spatula Cervix uteri structure / Unknown 02/02/2025 02/08/2025 12:11 PM EDT us Vaishnavi Pereyra MD LAB MOLECULAR DIAGNOSTIC S ORDERABLES Final Result [facility] [address] [place] [address], * MG Mammo Digital Screening w Marvin bilat (01/25/2025 7:39 AM EDT) Anatomical Region Laterality Modality Breast Bilateral Mammography 01/25/2025 3:41 PM EDT Impressions 01/25/2025 3:42 PM EDT No evidence of breast malignancy. BI-RADS CATEGORY: 1 - NEGATIVE RECOMMENDATION: Screening bilateral mammogram is recommended in 1 year. Mammo Location: [facility], [address] [place], [place], [address], . -------- FINAL REPORT -------- Dictated By: Janette Mckeon Dictated Date: 01/25/2025 15:41 ET Assigned Physician: Janette Mckeon Reviewed and Electronically Signed By: Janette Mckeon Signed Date: 01/25/2025 15:42 ET Workstation ID: [id number] Transcribed By: Self Edit Transcribed Date: 01/25/2025 [...] year. Mammo Location: [facility], [address] [place] [address], [address], . -------- FINAL REPORT -------- Dictated By: Janette Mckeon Dictated Date: 01/25/2025 15:41 ET Assigned Physician: Janette Mckeon Reviewed and Electronically Signed By: Janette Mckeon Signed Date: 01/25/2025 15:42 ET Workstation ID: [id number] Transcribed By: Self Edit Transcribed Date: 01/25/2025 15:41 ET us Self Referral Sppl IMG BI PROCEDURES Final Resul t * (ABNORMAL) Lipid panel with reflex to direct LDL (10/05/2024 8:03 AM EDT) Cholesterol 204(H) 0 - 200 mg/dL LAB CHEMISTRY METHOD 10/05/2024 9:21 AM EDT [facility] Triglycerides 52 0 - 150 mg/dL LAB CHEMISTRY METHOD 10/05/2024 9:21 AM EDT [facility] HDL 73 >=40 mg/dL LAB CHEMISTRY METHOD 10/05/2024 9:21 AM EDT [facility] LDL Calculated 121(H) 0 - 100 mg/dL LAB CHEMISTRY METHOD 10/05/2024 9:21 AM EDT [facility] VLDL Cholesterol Boris 10.4 mg/dL LAB CHEMISTRY METHOD 10/05/2024 9:21 AM EDT [facility] Non HDL Chol. (LDL+VLDL) 131 <145 mg/dL LAB CHEMISTRY METHOD 10/05/2024 9:21 AM EDT [facility] Chol/HDL Ratio 2.8 0.0 - 4.4 LAB CHEMISTRY METHOD 10/05/2024 9:21 AM T [facility] Blood Venous blood specimen / Unknown Venipuncture / Unknown 10/05/2024 8:03 AM EDT 10/05/2024 8:10 AM EDT us Victoria Armas FEDERAL JUDGE LAB BLOOD ORDERABLES Final Re sult [facility] [address] [place] [address], [place] [phone] * Hepatitis C antibody (10/05/2024 8:02 AM EDT) Hepatitis C Antibody Negative Negative LAB CHEMISTRY METHOD 10/05/2024 11:00 AM EDT [facility] Blood Venous blood specimen / Unknown Venipuncture / Unknown 10/05/2024 8:02 AM EDT 10/05/2024 8:10 AM EDT us Milvia Iqbal MD LAB BLOOD ORDERABLES Final Res ult [facility] [address] [place] [address], [place] [phone] from Last 3 Months or Most Recently Relevant to Health Maintenance Insurance [employer] Advance Directives Documents on File Type Date Recorded 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
--- OUTSIDE RECORDS SUMMARY | 2025-06-11 18:16 | XMS_ITS | Clinical Summary ---
Author Organization [employer] [facility] Prior to 12/05/[address] [place] [id number] Care Team Providers Care Roving Department Supervisor Name Role Phone Milvia Iqbal MD Primary Care Provider [phone] Allergies Active Allergy Reactions Criticality Noted Date [...] Take 800 mg by mouth. 0 Active Vtakvxspyn-KIHR-Dnhgez ne 50-300-40 MG CAPS 1 capsule by [...] age to complete this topic Care Teams Roving Department Supervisor Relationship Specialty Start Date End Date Milvia Iqbal MD [address] [place] [address] PCP - General Internal Medicine 03/18/17
--- OUTSIDE RECORDS SUMMARY | 2025-06-11 18:16 | XMS_ITS | Encounter Summary ---
Author Organization [employer] Address [address] [place] [address] Care Team Providers Care Tool And Die Inspector Name Role Phone Milvia Iqbal MD Primary Care Provider [phone] Encounter Details Date Type Department Care Team (Latest Contact Info) Description 02/03/2025 Lab Requisition [facility] - Main Lab [address] [place] [address] Vaishnavi Pereyra MD [address] [phone] Encounter for gynecological examination (general) (routine) without [...] LAB MICROBIOLOGY METHOD 02/10/2025 1:46 PM EDT [facility] Brushing/Spatula Cervix uteri structure / Unknown 02/02/2025 02/08/2025 12:11 PM EDT Vaishnavi Pereyra MD LAB MOLECULAR DIAGNOSTIC S ORDERABLES Final Result [facility] [address] [place] [address], * (ABNORMAL) Pap smear (02/02/2025 12:00 AM EDT) Interpretation Atypical squamous cells of undetermined significance(A) 02/08/2025 12:11 PM EDT [facility] at 1211 EDT General Categorization Epithelial cell abnormality, see interpretation 02/08/2025 12:11 PM EDT [facility] Specimen Adequacy Satisfactory for evaluation, endocervical/tra nsformation zone component present 02/08/2025 12:11 PM EDT [facility] Pap Methodology Liquid Based Pap Test 02/08/2025 12:11 PM EDT [facility] Disclaimer The Pap test is a screening test which carries an inherent false negative rate. These test results should be correlated with the patient's clinical findings and history. This Pap test was processed using an automated screening system. Technical cytopathology services provided by [facility], at [address] [place] [address], [place] [address] (CLIA # [id number]/Kuldip Coulter MD, Office Agent.) 02/08/2025 12:11 PM EDT [facility] Console Pap Interpretation Reported 02/08/2025 12:11 PM [facility] Brushing/Spatula Cervix uteri structure / Unknown 02/02/2025 02/03/2025 7:14 AM EDT us Vaishnavi Pereyra MD LAB CYTOLOGY ORDERABLES Final Result [facility] [address] [place] [address], documented in this encounter Visit Diagnoses Diagnosis Encounter for gynecological examination (general) (routine) without abnormal findings documented in this encounter Care Teams Tool And Die Inspector Relationship Specialty Start Date End Date Milvia Iqbal MD [address] [place] [id number] PCP - General Internal Medicine 11/18/12 documented as of this encounter
== END 2025-06-11 13:54 | disposition home or self-care (01) ==
LOC: HO.XRAY 13:53
PROVIDERS: PCP Internal Medicine; Visit Provider Internal Medicine
DX: M95.8 Other specified acquired deformities of musculoskeletal system (principal); Z80.3 Family history of malignant neoplasm of breast
CPT/HCPCS: 73000

== ENCOUNTER → 2025-06-11 14:15 | Outpatient (BNV) | payer OTHER, SELFPAY | PROVIDERS: PCP Internal Medicine; Visit Provider Radiology Diagnostic Radiology | DX: M61.511 Other ossification of muscle, right shoulder (principal) | CPT/HCPCS: 73000 ==

== ENCOUNTER 2025-07-02 13:44 | Outpatient (REF) | payer OTHER, SELFPAY ==
--- OUTSIDE RECORDS SUMMARY | 2024-05-29 04:00 | XMS_ITS ---
Author Organization Milvia Iqbal MD Address [address] [place] [phone] Care Team Providers Care Customer Success Advocate Name Role Phone Milvia Iqbal Primary Care Provider REASON FOR VISIT 6m f/u SVT Encounters Encounter Location Date Provider Diagnosis Milvia Iqbal MD [address] JAS[place] TE [address] [place] [phone] 05/29/2024 Milvia Iqbal Plan Of Treatment Next Appt Details Provider Name:Milvia Iqbal , 07/19/2025 08:45:00 AM, [address] [place] [address], [phone], Provider Name:Milvia Iqbal , 12/06/2025 03:45:00 PM, [address] [place] [address], [phone], Progress Notes * KEVINGustavoLukasOB:1970 (54 yo F)Acc No.[id number]:05/29/2024 Progress Notes Patient: Myra VICENTE Provider: Jose Manuel Iqbal MD :1970 A ge:53 Y S ex:Female Date:05/29/2024 Address:[address] [place] [address] Subjective: * Chief Complaints: * 1 . 6m f/u SVT. * Medical History: Objective: * Vitals: Past Vitals:* 11/22/2023 Temp:96.5F, HR:91/min, BP:Si tting Right Arm: 114/64mm Hg, Wt:183.4lbs, BMI:27.08Index, Ht:69in, Oxygen sat %:99% * 12/06/2022 Temp:97.6F, HR:71/min, BP:Si tting Right Arm:108/78mm Hg, Wt:180lbs, BMI:26.58Index, Ht:69in, Oxygen sat %:98% * 11/19/2022 Temp:98.6F, HR:69/min, BP:Si tting Left Arm:108/70mm Hg, Wt:180lbs, BMI:26.58Index, Ht:69in, Oxygen sat %:96% Assessment: Plan: * Treatment: * Images: Billing Information: * Visit Code: * Procedure Codes: * Electronic signature of Kailyn Iqbal MD on 07/02/2025 at 01:50 PM EST Sign off status: Pending * Provider: Jose Manuel Iqbal MD Date: 07/29/2023 Generated for Jose Enrique love/Marybeth/Red on: 09/02/2024 01:50 PM EST
--- OUTSIDE RECORDS SUMMARY | 2024-11-05 03:15 | XMS_ITS ---
Author Organization [facility] [address] [address] Address [address] [place] [address] Care Team Providers Care Manager Strategic Name Role Phone JOSEFINA RALPH Primary Care Provider [phone] DONYA KNOX Unavailable [phone] Encounters Encounter Location Date Provider Diagnosis [facility] [address] [facility] [address] [place] [phone] 11/05/2024 DONYA KNOX Plan Of Treatment No Information Progress Notes * Felicia BROWNOB:1970 (54 yo F)Acc No.[id number]:11/05/2024 Patient: Myra Dorantes Provider: Nirav KNOX NP :1970 A ge:53 Y S ex:Female Date:11/05/2024 Address:[address] [place], [place] [phone] Pcp:JOSEFINA RALPH * Electronic signature of RAY KNOX on 07/02/2025 at 01:51 PM EST Sign off status: Pending * Provider: Nirav KNOX NP Date: 0 11/05/2024 Generated for Printi ng/Faxing/eTransmitting on: 1 09/02/2024 01:51 PM EST
--- OUTSIDE RECORDS SUMMARY | 2025-02-12 03:30 | XMS_ITS ---
Author Organization [facility] [address] [address] Address [address] [place] [address] Care Team Providers Care Pouncing Lathe Operator Name Role Phone JOSEFINA RALPH Primary Care Provider [phone] DONYA KNOX Unavailable [phone] Encounters Encounter Location Date Provider Diagnosis [facility] [address] [facility] [address] [place] [phone] 02/12/2025 DONYA KNOX Plan Of Treatment No Information Progress Notes * Felicia BROWNOB:1970 (54 yo F)Acc No.[id number]:02/12/2025 Patient: Dion Dorantesen Provider: Nirav KNOX NP :1970 A ge:54 Y S ex:Female Date:02/12/2025 Address:[address] [place], [place] [phone] Pcp:JOSEFINA RALPH * Electronic signature of RAY KNOX on 07/02/2025 at 01:50 PM EST Sign off status: Pending * Provider: Nirav KNOX NP Date: 0 02/12/2025 Generated for Printi ng/Faxing/eTransmitting on: 1 09/02/2024 01:50 PM EST
--- NOTE | ~2025-07-02 | MR_ITS ---
EXAMINATION: MR BREAST WITHOUT AND WITH CONTRAST, BILATERAL CLINICAL INFORMATION: F/H MALIGNANT NEOPLASM OF BREAST COMPARISON: -Left breast ultrasound on January 23, 2024 at [facility] (BI-RADS 2) -Bilateral screening mammogram on January 25, 2025 (BI-RADS 1) -Patient mentioned a palpable lump overlying the right clavicle which is not evaluated on the current examination. TECHNIQUE: Siemens Magnetom Altea 1.5 T utilized. MR imaging of the breast was performed using T1, T2 and fat saturated techniques. Dynamic multiphase imaging was performed with 4 sequences after the administration of 10 cc of intravenous gadolinium contrast agent Gadavist 3D image processing was performed using the diagnostic workstation ([employer] software) with real-time multiplanar image reformation and maximum intensity projection ray tracing. Kinetic curves were obtained. FINDINGS: Breast composition: Scattered fibroglandular tissue. Minimal background parenchymal enhancement. RIGHT BREAST: No suspicious masses or areas of non mass enhancement. No architectural distortion. No axillary or internal mammary adenopathy. LEFT BREAST: No suspicious masses or areas of non mass enhancement. No architectural distortion. No axillary or internal mammary adenopathy. Limited views of the chest and abdomen are unremarkable. MR/MR breast BI wo/w con IMPRESSION: BILATERAL BREASTS: No MR specific evidence of malignancy. ASSESSMENT: BIRADS 1: Negative RECOMMENDATIONS: Yearly screening mammography Yearly Breast MRI screening surveillance. Electronically signed by: Sahara Braga MD 07/02/2025 06:58 PM EST
--- OUTSIDE RECORDS SUMMARY | 2025-07-02 13:51 | XMS_ITS | Clinical Summary ---
Author Organization [employer] [facility] Prior to 12/05/[address] [place] [id number] Care Team Providers Care Health Informatics Specialist Name Role Phone Milvia Iqbal MD Primary Care Provider [phone] Allergies Active Allergy Reactions Criticality Noted Date [...] Take 800 mg by mouth. 0 Active Wdozifliwo-EXGN-Ummquv ne 50-300-40 MG CAPS 1 capsule by [...] age to complete this topic Care Teams Health Informatics Specialist Relationship Specialty Start Date End Date Milvia Iqbal MD [address] [place] [id number] PCP - General Internal Medicine 03/18/17
--- OUTSIDE RECORDS SUMMARY | 2025-07-02 13:51 | XMS_ITS | Patient Health Record ---
Author Organization [facility] [address] Address [address] [place] [address] Care Team Providers Care Supervisor Core Drilling Name Role Phone JOSEFINA ROUSE Primary Care Provider DONYA KNOX Unavailable [phone] ANNELIESEMANDEEP PRATIBHA Unavailable [phone] Allergies Allergen (clinical drug ingredient) Drug/Non Drug Allergy documented on EMR Reaction Allergy Type Onset Date Status pcn (uncoded) Unknown Allergy Active Results Component Value Reference Range Flag Notes ANTIMULLERIAN HORMONE Reviewed date:10/07/2024 01:43:49 PM Interpretation: Performing Lab: Notes/Report: Anti Mullerian Hormone (AMH) <0.08 No reference range available for females under 18 years or over 45 years. Test performed at [facility] [place] [address] Brionna Rand MD, PhD - Regional Program Manager DEHYDROEPIANDROSTERONE Reviewed date:10/11/2024 01:21:03 PM Interpretation: Performing Lab: Notes/Report: DHEA (Dehydroepiandrosterone), Unconjugated, LC/MS/MS 113 Adult Female Reference Ranges Pre-Menopausal Mid Follicular: 385-1143 ng/dL Surge: 345-2030 ng/dL Mid Luteal: 414-1295 ng/dL Post-Menopausal 77-851 ng/dL This test was developed and its analytical performance characteristics have been determined by [facility]. It has not been cleared or approved by the FDA. This assay has been validated pursuant to the CLIA regulations and is used for clinical purposes. Test Performed at: [facility] [address] [address] Nadia Leyva MD, PhD, JOSE HEPATITIS C ANTIBODY Reviewed date:10/05/2024 04:47:52 PM Interpretation: Performing Lab: Notes/Report: Hepatitis C Antibody Negative Negative ESTRADIOL Reviewed date:10/05/2024 04:48:16 PM Interpretation: Performing [...] expected to show cross reactivity to fulvestrant. LUTEINIZING HORMONE Reviewed date:10/05/2024 04:48:16 PM Interpretation: Performing Lab: Notes/Report: LH REFERENCE RANGES (MIU/ML) FEMALES NORMALLY MENSTRUATING: FOLLICULAR PHASE 1.9 - 12.8 MIDCYCLE PEAK 22.8 - 76.1 LUTEAL PHASE 0.6 - 13.5 POSTMENOPAUSAL: ON HRT 1.1 - 52.4 UNTREATED 8.6 - 61.8 Luteinizing Hormone 31.6 See Comment mIU/mL FOLLICLE [...] 04:47:48 PM Interpretation: Performing Lab: Notes/Report: Specific [place] Urine 1.014 1.003-1.030 pH, Urine 6.0 5.5, [...] Non-Squamous Epithelial, Urine 2-5 Transitional epithelial cells. COMPREHENSIVE METABOLIC PANE L Reviewed date:10/05/2024 04:48:20 [...] 3.2-5.0 g/dL Total Bilirubin 0.4 0.0-1.4 mg/dL THYROID STIMULATING HORMONE Reviewed date:10/05/2024 04:48:10 PM Interpretation: Performing Lab: Notes/Report: TSH 0.95 0.40-4.00 mcIU/mL THYROXINE FREE Reviewed date:10/05/2024 04:48:10 PM Interpretation: Performing Lab: Notes/Report: Free T4 1.26 0.70-1.80 ng/dL VITAMIN D 25 HYDROXY Reviewed date:10/05/2024 04:48:04 PM Interpretation: Performing Lab: Notes/Report: Vit D, 25-Hydroxy 25.3 30.0-80.0 ng/mL L LIPID PANEL WITH REFLEX TO D IRECT LDL Reviewed date:10/05/2024 04:53:07 PM Interpretation: Performing Lab: Notes/Report: Cholesterol 204 0-200 mg/dL H Triglycerides 52 0-150 mg/dL HDL 73 >=40 mg/dL LDL Calculated 121 0-100 mg/dL H VLDL Cholesterol Boris 10.4 Non HDL Chol. (LDL+VLDL) 131 <145 mg/dL Chol/HDL Ratio 2.8 0.0-4.4 CBC WITH AUTO DIFFERENTIAL Reviewed date:10/05/2024 04:52:59 [...] K/mcL Immature Granulocytes Absolute 0.01 0.00-0.03 K/mcL Reason For Referral No Information Medications Medication [...] Status W/U Status Risk Notes Problem Hypothyroidism (70748833) Hypothyroidism, unspecified (E03.9) Active confirmed Problem Vitamin D deficiency (85925062) Vitamin D deficiency, unspecified (E55.9) Active confirmed Problem Overweight (895265567) Overweight (E66.3) Active confirmed Problem Obesity (473132812) Other obesity (E66.8) Active confirmed Problem Hyperlipidemia (49420724) Hyperlipidemia, unspecified (E78.5) Active confirmed Problem Paroxysmal atrial fibrillation (187832293) Paroxysmal atrial fibrillation (I48.0) Active confirmed Problem Chronic fatigue syndrome (disorder) (04912761) Chronic fatigue, unspecified (R53.82) Active confirmed Problem Body mass index 30+ - obesity (645247177) Body mass index (BMI) 30.0-30.9, adult (Z68.30) Active confirmed Problem Body mass index 30.00 to 34.99 (316511180983815) Body mass index (BMI) 31.0-31.9, adult (Z68.31) Active confirmed Problem Adult health examination (939919315) Adult general medical exam (Z00.00) Active confirmed Problem Vitamin D deficiency (60603228) Vitamin D deficiency (E55.9) Active confirmed Problem Seizure disorder (650213484) Seizure disorder (G40.909) Active confirmed Problem Diabetes mellitus screening (056106519) Diabetes mellitus screening (Z13.1) Active confirmed Problem Use of anticoagulation (756752032) Chronic anticoagulation (Z79.01) Active confirmed Problem Polycystic ovary syndrome (disorder) (176840576) PCOS (polycystic ovarian syndrome) (E28.2) Active confirmed Problem Overweight (794387000) Overweight (BMI 25.0-29.9) (E66.3) Active confirmed Problem Thyromegaly (8531326) Thyromegaly (E01.0) Active confirmed Problem Atrial fibrillation (92623949) Atrial fibrillation with RVR (I48.91) Active confirmed Problem Perimenopause (658424019) Perimenopause (N95.1) Active confirmed Problem Endocrine/metaboli c screening (827132918) Encounter for screening for endocrine disorder (Z13.29) Active confirmed Problem Lipid screening (696586628) Lipid screening (Z13.220) Active confirmed Vital Signs Heart Rate 74 /min 12/31/2024 Oximetry 99 % 12/31/2024 Blood pressure diastolic 76 mm Hg 12/31/2024 Height 69 in 12/31/2024 Blood pressure systolic 112 mm Hg 12/31/2024 Weight 186.3 lbs 12/31/2024 BMI 27.51 kg/m2 12/31/2024 Encounters Encounter Location Date Provider Diagnosis [facility] [address] [address] 07/16/2024 PRATIBHA SMITH Overweight E66.3 ; B ME 26.0-26.9,adult Z68.26 ; Nutritional counseling Z71.3 ; Paroxysmal atrial fibrillation I48.0 ; PCOS (polycystic ovarian syndrome) E28.2 and Seizure disorder G40.909 [facility] [address] [address] 09/17/2024 DONYA KNOX BMI 27.0-27.9,adult Z68.27 ; Overweight (BMI 25.0-29.9) E66.3 ; Dietary counseling and surveillance Z71.3 ; Paroxysmal atrial fibrillation I48.0 ; PCOS (polycystic ovarian syndrome) E28.2 ; Hypothyroidism, unspecified E03.9 and Perimenopause N95.1 [facility] [address] [address] 12/31/2024 DONYA KNOX BMI 27.0-27.9,adult Z68.27 ; Overweight (BMI 25.0-29.9) E66.3 ; Dietary counseling and surveillance Z71.3 ; Paroxysmal atrial fibrillation I48.0 ; PCOS (polycystic ovarian syndrome) E28.2 ; Hypothyroidism, unspecified E03.9 ; Perimenopause N95.1 and Encounter for examination of blood pressure without abnormal findings Z01.30 [facility] [address] [address] [place] [address] 07/07/2024 JOSEFINA ROUSE [facility] [address] [address] [place] [address] 07/16/2024 PRATIBHA SMITH [facility] [address] [facility] [address] [place] [address] 07/29/2024 PRATIBHA SMITH [facility] [address] [facility] [address] [place] [address] 09/22/2024 DONYA KNOX Assessments Encounter Date Diagnosis [...] on Eliquis. Underwent cardiac ablation, follow-up with [facility] cardiology. Will continue to monitor. # Seizure [...] Dictation was accomplished with the use of fluid [employer] voice recognition software, which is prone to [...] on Eliquis. Underwent cardiac ablation, follow-up with [facility] cardiology. Will continue to monitor. # Seizure [...] Dictation was accomplished with the use of [employer] voice recognition software, which is prone to [...] software and direct typing Please excuse inadvertent telemetry registered nurse or typing errors, or uncorrected word substitutions Although every attempt has been made by the provider to proofread this document, occasional misspellings and typographical errors may still be present Due to the previous pandemic, and the use of personal protective equipment (PPE) This may decrease voice recognition accuracy Inadvertent telemetry registered nurse errors may occur 12/31/2024 BMI 27.0-27.9,adult (ICD-10 [...] software and direct typing Please excuse inadvertent telemetry registered nurse or typing errors, or uncorrected word substitutions Although every attempt has been made by the provider to proofread this document, occasional misspellings and typographical errors may still be present Due to the previous pandemic, and the use of personal protective equipment (PPE) This may decrease voice recognition accuracy Inadvertent telemetry registered nurse errors may occur 12/31/2024 Overweight (BMI 25.0-29.9) [...] software and direct typing Please excuse inadvertent telemetry registered nurse or typing errors, or uncorrected word substitutions Although every attempt has been made by the provider to proofread this document, occasional misspellings and typographical errors may still be present Due to the previous pandemic, and the use of personal protective equipment (PPE) This may decrease voice recognition accuracy Inadvertent telemetry registered nurse errors may occur 12/31/2024 Dietary counseling and [...] software and direct typing Please excuse inadvertent telemetry registered nurse or typing errors, or uncorrected word substitutions Although every attempt has been made by the provider to proofread this document, occasional misspellings and typographical errors may still be present Due to the previous pandemic, and the use of personal protective equipment (PPE) This may decrease voice recognition accuracy Inadvertent telemetry registered nurse errors may occur 09/17/2024 Overweight (BMI 25.0-29.9) [...] software and direct typing Please excuse inadvertent telemetry registered nurse or typing errors, or uncorrected word substitutions Although every attempt has been made by the provider to proofread this document, occasional misspellings and typographical errors may still be present Due to the previous pandemic, and the use of personal protective equipment (PPE) This may decrease voice recognition accuracy Inadvertent telemetry registered nurse errors may occur 09/17/2024 Dietary counseling and [...] software and direct typing Please excuse inadvertent telemetry registered nurse or typing errors, or uncorrected word substitutions Although every attempt has been made by the provider to proofread this document, occasional misspellings and typographical errors may still be present Due to the previous pandemic, and the use of personal protective equipment (PPE) This may decrease voice recognition accuracy Inadvertent telemetry registered nurse errors may occur 07/16/2024 Nutritional counseling (ICD-10 [...] on Eliquis. Underwent cardiac ablation, follow-up with [facility] cardiology. Will continue to monitor. # Seizure [...] Dictation was accomplished with the use of [employer] voice recognition software, which is prone to [...] on Eliquis. Underwent cardiac ablation, follow-up with [facility] cardiology. Will continue to monitor. # Seizure [...] Dictation was accomplished with the use of [employer] voice recognition software, which is prone to [...] software and direct typing Please excuse inadvertent telemetry registered nurse or typing errors, or uncorrected word substitutions Although every attempt has been made by the provider to proofread this document, occasional misspellings and typographical errors may still be present Due to the previous pandemic, and the use of personal protective equipment (PPE) This may decrease voice recognition accuracy Inadvertent telemetry registered nurse errors may occur 12/31/2024 Paroxysmal atrial fibrillation [...] software and direct typing Please excuse inadvertent telemetry registered nurse or typing errors, or uncorrected word substitutions Although every attempt has been made by the provider to proofread this document, occasional misspellings and typographical errors may still be present Due to the previous pandemic, and the use of personal protective equipment (PPE) This may decrease voice recognition accuracy Inadvertent telemetry registered nurse errors may occur 12/31/2024 PCOS (polycystic ovarian [...] software and direct typing Please excuse inadvertent telemetry registered nurse or typing errors, or uncorrected word substitutions Although every attempt has been made by the provider to proofread this document, occasional misspellings and typographical errors may still be present Due to the previous pandemic, and the use of personal protective equipment (PPE) This may decrease voice recognition accuracy Inadvertent telemetry registered nurse errors may occur 07/16/2024 PCOS (polycystic ovarian [...] on Eliquis. Underwent cardiac ablation, follow-up with [facility] cardiology. Will continue to monitor. # Seizure [...] Dictation was accomplished with the use of [employer] voice recognition software, which is prone to [...] software and direct typing Please excuse inadvertent telemetry registered nurse or typing errors, or uncorrected word substitutions Although every attempt has been made by the provider to proofread this document, occasional misspellings and typographical errors may still be present Due to the previous pandemic, and the use of personal protective equipment (PPE) This may decrease voice recognition accuracy Inadvertent telemetry registered nurse errors may occur 07/16/2024 Seizure disorder (ICD-10 [...] on Eliquis. Underwent cardiac ablation, follow-up with [facility] cardiology. Will continue to monitor. # Seizure [...] Dictation was accomplished with the use of [employer] voice recognition software, which is prone to [...] software and direct typing Please excuse inadvertent telemetry registered nurse or typing errors, or uncorrected word substitutions Although every attempt has been made by the provider to proofread this document, occasional misspellings and typographical errors may still be present Due to the previous pandemic, and the use of personal protective equipment (PPE) This may decrease voice recognition accuracy Inadvertent telemetry registered nurse errors may occur 12/31/2024 Hypothyroidism, unspecified (ICD-10 [...] software and direct typing Please excuse inadvertent telemetry registered nurse or typing errors, or uncorrected word substitutions Although every attempt has been made by the provider to proofread this document, occasional misspellings and typographical errors may still be present Due to the previous pandemic, and the use of personal protective equipment (PPE) This may decrease voice recognition accuracy Inadvertent telemetry registered nurse errors may occur 12/31/2024 Perimenopause (ICD-10 - [...] software and direct typing Please excuse inadvertent telemetry registered nurse or typing errors, or uncorrected word substitutions Although every attempt has been made by the provider to proofread this document, occasional misspellings and typographical errors may still be present Due to the previous pandemic, and the use of personal protective equipment (PPE) This may decrease voice recognition accuracy Inadvertent telemetry registered nurse errors may occur 09/17/2024 Perimenopause (ICD-10 - [...] software and direct typing Please excuse inadvertent telemetry registered nurse or typing errors, or uncorrected word substitutions Although every attempt has been made by the provider to proofread this document, occasional misspellings and typographical errors may still be present Due to the previous pandemic, and the use of personal protective equipment (PPE) This may decrease voice recognition accuracy Inadvertent telemetry registered nurse errors may occur 12/31/2024 Encounter for examination [...] software and direct typing Please excuse inadvertent telemetry registered nurse or typing errors, or uncorrected word substitutions Although every attempt has been made by the provider to proofread this document, occasional misspellings and typographical errors may still be present Due to the previous pandemic, and the use of personal protective equipment (PPE) This may decrease voice recognition accuracy Inadvertent telemetry registered nurse errors may occur Plan Of Treatment Pending Test Test Name Order Date Echocardiogram 08/21/2018 TSH 09/17/2024 Vitamin D, 1,25 Dihydroxy 10/02/2018 Lipid Panel 09/17/2024 EKG 01/13/2021 EKG 02/05/2018 25OH VITAMIN D 01/13/2021 CBC (COMPLETE BLOOD COUNT) 02/05/2018 CBC (COMPLETE BLOOD COUNT) 10/02/2018 COMPREHENSIVE METABOLIC PANEL 10/02/2018 COMPREHENSIVE METABOLIC PANEL 02/05/2018 COMPREHENSIVE METABOLIC PANEL 09/17/2024 FSH 09/17/2024 HEMOGLOBIN A1C 09/17/2024 HEMOGLOBIN A1C [...] Date Coverage End Date [employer] [address] [address] [place] [address] [id number] [phone] Myra Mccall Self - patient is the insured Medications Administered Medication Instructions Date of Administration Dosage Notes MICC B12 INJECTION 11/08/2020 1 . Inje ction given in left arm. Informed consent taken. Patient tolerated the procedure well and was discharged in stable condition. MICC B12 INJECTION 11/22/2020 1 LOT # [id number] MICC B12 INJECTION 12/13/2020 1 MICC B12 [...]
--- OUTSIDE RECORDS SUMMARY | 2025-07-02 13:51 | XMS_ITS | Clinical Summary ---
Author Organization [address] Address [address] [place] [address] Phone Care Team Providers Care Supervisor Computer Operations Name Role Phone Milvia Iqbal MD Primary Care Provider [phone] Surgical History Surgery Date Site/Laterality Comments APPENDECTOMY [...] LAB MICROBIOLOGY METHOD 02/10/2025 1:46 PM EDT [facility] Brushing/Spatula Cervix uteri structure / Unknown 02/02/2025 02/08/2025 12:11 PM EDT us Vaishnavi Pereyra MD LAB MOLECULAR DIAGNOSTIC S ORDERABLES Final Result [facility] [address] [place] [id number], * MG Mammo Digital Screening w Marvin bilat (01/25/2025 7:39 AM EDT) Anatomical Region Laterality Modality Breast Bilateral Mammography 01/25/2025 3:41 PM EDT Impressions 01/25/2025 3:42 PM EDT No evidence of breast malignancy. BI-RADS CATEGORY: 1 - NEGATIVE RECOMMENDATION: Screening bilateral mammogram is recommended in 1 year. Mammo Location: [facility] , [address] [place], [place], [address], . -------- FINAL REPORT -------- Dictated By: Janette Mckeon Dictated Date: 01/25/2025 15:41 ET Assigned Physician: Janette Mckeon Reviewed and Electronically Signed By: Janette Mckeon Signed Date: 01/25/2025 15:42 ET Workstation ID: [id number] Transcribed By: Self Edit Transcribed Date: 01/25/2025 [...] year. Mammo Location: [facility] , [address] [place] [address], [address], . -------- FINAL REPORT -------- Dictated By: Janette Mckeon Dictated Date: 01/25/2025 15:41 ET Assigned Physician: aJnette Mckeon Reviewed and Electronically Signed By: Janette Mckeon Signed Date: 01/25/2025 15:42 ET Workstation ID: [id number] Transcribed By: Self Edit Transcribed Date: 01/25/2025 15:41 ET us Self Referral Sppl IMG BI PROCEDURES Final Resul t * (ABNORMAL) Lipid panel with reflex to direct LDL (10/05/2024 8:03 AM EDT) Cholesterol 204(H) 0 - 200 mg/dL LAB CHEMISTRY METHOD 10/05/2024 9:21 AM EDT [facility] Triglycerides 52 0 - 150 mg/dL LAB CHEMISTRY METHOD 10/05/2024 9:21 AM EDT [facility] HDL 73 >=40 mg/dL LAB CHEMISTRY METHOD 10/05/2024 9:21 AM EDT [facility] LDL Calculated 121(H) 0 - 100 mg/dL LAB CHEMISTRY METHOD 10/05/2024 9:21 AM EDT [facility] VLDL Cholesterol Boris 10.4 mg/dL LAB CHEMISTRY METHOD 10/05/2024 9:21 AM EDT [facility] Non HDL Chol. (LDL+VLDL) 131 <145 mg/dL LAB CHEMISTRY METHOD 10/05/2024 9:21 AM EDT [facility] Chol/HDL Ratio 2.8 0.0 - 4.4 LAB CHEMISTRY METHOD 10/05/2024 9:21 AM T [facility] Blood Venous blood specimen / Unknown Venipuncture / Unknown 10/05/2024 8:03 AM EDT 10/05/2024 8:10 AM EDT us Victoria Armas PROCESS SPECIALIST LAB BLOOD ORDERABLES Final Re sult [facility] [address] [place] [address], [place] [phone] * Hepatitis C antibody (10/05/2024 8:02 AM EDT) Hepatitis C Antibody Negative Negative LAB CHEMISTRY METHOD 10/05/2024 11:00 AM EDT [facility] Blood Venous blood specimen / Unknown Venipuncture / Unknown 10/05/2024 8:02 AM EDT 10/05/2024 8:10 AM EDT us Milvia Iqbal MD LAB BLOOD ORDERABLES Final Res ult [facility] [address] [place] [address], [place] [phone] from Last 3 Months or Most Recently Relevant to Health Maintenance Insurance [employer] [facility] Advance Directives Documents on File Type Date Recorded Patient Bridge Expert Expl anation Health Care Decision (hx) 03/02/2020 [...] (hx) 03/02/2020 AD PARISI DIRECTIVE Care Teams Supervisor Computer Operations Relationship Specialty Start Date End Date Milvia Iqbal MD [address] [place] [phone] PCP - General Internal Medicine 11/18/12
--- OUTSIDE RECORDS SUMMARY | 2025-07-02 13:51 | XMS_ITS | Patient Health Record ---
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 Name Role Phone [facility] Primary Care Provider Allergies Allergen (clinical drug ingredient) Drug/Non Drug Allergy documented on EMR Reaction Allergy Type Onset Date Status penicillin V Penicillin V Potassium Rash Drug Allergy Active Results Component Value Reference Range Notes DEHYDROEPIANDROSTERONE Reviewed date:10/12/2024 10:13:25 AM Interpretation: Performing Lab: Notes/Report: DHEA (Dehydroepiandrosterone), Unconjugated, LC/MS/MS 113 Adult Female Reference Ranges Pre-Menopausal Mid Follicular: 385-1143 ng/dL Surge: 345-2030 ng/dL Mid Luteal: 414-1295 ng/dL Post-Menopausal 77-851 ng/dL This test was developed and its analytical performance characteristics have been determined by [facility]. It has not been cleared or approved by the FDA. This assay has been validated pursuant to the CLIA regulations and is used for clinical purposes. Test Performed at: [facility] [id number] [place] [phone] Nadia Leyva MD, PhD, JOSE PAP SMEAR Reviewed date:02/09/2025 06:35:28 PM Interpretation: [...] screening system. Technical cytopathology services provided by [facility], at [address] [place] [id number] (CLIA # [id number]/Otto Coulter MD, Cycle Counter.) Console Pap Interpretation Reported HPV WITH REFLEX GENOTYPE Reviewed date:02/10/2025 06:09:42 PM Interpretation: Performing Lab: Notes/Report: HPV Negative Negative MG MAMMO DIGITAL SCREENING W JOSELYN BILAT Reviewed date:01/27/2025 05:54:24 PM Interpretation: Performing Lab: Notes/Report: See Note [facility], a member of [facility] CLINICAL: 54 years old, Female, routine annual [...] year. Mammo Location: [facility], [address] [place] [address], [id number], . -------- FINAL REPORT -------- Dictated By: Janette Mckeon Dictated Date: 01/25/2025 15:41 ET Assigned Physician: Janette Mckeon Reviewed and Electronically Signed By: Janette Mckeon Signed Date: 01/25/2025 15:42 ET Workstation ID: [id number] Transcribed By: Self Edit Transcribed Date: 01/25/2025 15:41 ET VITAMIN D 25 HYDROXY Reviewed date:10/05/2024 11:47:52 AM Interpretation: Performing Lab: Notes/Report: Vit D, 25-Hydroxy 25.3 30.0-80.0 ng/mL THYROXINE FREE Reviewed date:10/05/2024 10:46:26 AM Interpretation: Performing Lab: Notes/Report: Free T4 1.26 0.70-1.80 ng/dL THYROID STIMULATING HORMONE Reviewed date:10/05/2024 11:47:52 AM Interpretation: Performing Lab: Notes/Report: TSH 0.95 0.40-4.00 mcIU/mL LUTEINIZING HORMONE Reviewed date:10/05/2024 10:18:48 AM Interpretation: Performing Lab: Notes/Report: LH REFERENCE RANGES (MIU/ML) FEMALES NORMALLY MENSTRUATING: FOLLICULAR PHASE 1.9 - 12.8 MIDCYCLE PEAK 22.8 - 76.1 LUTEAL PHASE 0.6 - 13.5 POSTMENOPAUSAL: ON HRT 1.1 - 52.4 UNTREATED 8.6 - 61.8 Luteinizing Hormone 31.6 See Comment mIU/mL LIPID PANEL WITH REFLEX TO D IRECT LDL Reviewed date:10/05/2024 09:39:12 AM Interpretation: Performing Lab: Notes/Report: Cholesterol 204 0-200 mg/dL Triglycerides 52 0-150 mg/dL HDL 73 >=40 mg/dL LDL Calculated 121 0-100 mg/dL VLDL Cholesterol Boris 10.4 Non HDL Chol. (LDL+VLDL) 131 <145 mg/dL Chol/HDL Ratio 2.8 0.0-4.4 HEPATITIS C ANTIBODY Reviewed date:10/05/2024 11:47:52 AM Interpretation: Performing Lab: Notes/Report: Hepatitis C Antibody Negative Negative FOLLICLE STIMULATING HORMONE Reviewed date:10/05/2024 10:18:48 AM Interpretation: Performing Lab: Notes/Report: Follicle Stimulating Hormone 75.2 See Comment mIU/mL FSH REFERENCE RANGES (MIU/ML) FEMALES NORMALLY MENSTRUATING: FOLLICULAR PHASE 2.3 - 12.6 MIDCYCLE PEAK 5.2 - 17.5 LUTEAL PHASE 1.7 - 9.5 POSTMENOPAUSAL: ON HRT 5.9 - 72.8 UNTREATED 12.7 - 132.2 ESTRADIOL Reviewed date:10/05/2024 09:39:12 AM Interpretation: Performing [...] expected to show cross reactivity to fulvestrant. CULTURE URINE Reviewed date:10/07/2024 09:14:41 PM Interpretation: Performing Lab: Notes/Report: Culture, Urine No growth COMPREHENSIVE METABOLIC PANE L Reviewed date:10/05/2024 09:39:12 [...] 3.2-5.0 g/dL Total Bilirubin 0.4 0.0-1.4 mg/dL CBC WITH AUTO DIFFERENTIAL Reviewed date:10/05/2024 09:39:11 [...] K/mcL Immature Granulocytes Absolute 0.01 0.00-0.03 K/mcL ANTIMULLERIAN HORMONE Reviewed date:10/07/2024 09:14:41 PM Interpretation: Performing Lab: Notes/Report: Anti Mullerian Hormone (AMH) <0.08 No reference range available for females under 18 years or over 45 years. Test performed at [facility], [facility] [place] [address] Brionna Rand MD, PhD - Cycle Counter X ray : Clavicle, right Reviewed date:06/16/2025 06:23:41 PM Interpretation: Performing Lab: Notes/Report: URINALYSIS WITH REFLEX MICRO SCOPIC AND CULTURE Reviewed date:10/05/2024 11:47:52 AM Interpretation: Performing Lab: Notes/Report: Specific Hammond Urine 1.014 1.003-1.030 pH, Urine 6.0 5.5, [...] <6.5 % Mean Bld Glu Estim. 103 Reason For Referral Diagnosis 1 Encounter for genera l adult medical examination without abnormal findings (Z00.00) Diagnosis 2 Plantar fascial fibr omatosis (M72.2) Referral Organization [facility] Referring Provider First Name Milvia Referring Provider Last Name Rasheed Referring Provider Speciality Internal M edicine Referred Provider PodCelina aguilar Referred Provider Specialty Podiatry General Notes [facility], Sofia 04/08 08:09:52 AM >faxed Referral Priority Routine Medications Medication SIG (Take, Route, Frequency, Duration) Notes Start Date End Date Status Veozah 45 MG 1 tablet Orally Once a day; Duration: 30 day(s) 11/26/2024 Not-Taking Mirena Not-Taking Zepbound 10 MG/0.5ML Subcutaneous; Duration: 28 Days Not-Taking Xiscywhtsh-TIYK-Aqmqbqqi 50-325-40 MG TAKE 1 TABLET BY MOUTH EVERY 4 HOURS NEEDED; Duration: 14 Active Aspirin 81 MG 1 tablet Orally Once a day; Duration: 30 day(s) Active levETIRAcetam 1000 MG TAKE 1 TABLET BY M OUTH EVERY DAY; Duration: 90 Active Ibuprofen 800 MG 1 tablet with food o r milk Orally Twice a day; Duration: 30 day(s) Active Metoprolol Succinate ER 25 MG Oral Active Immunizations Vaccine Route Administration Date Status Comme nts *Yfrlnxhyw-Huee-ZA IM Intramuscular 05/25/2020 Administere d *Td (adult) preservative free Unknown 07/08/2011 Administered *Tdap Unknown 10/12/2022 Refused HYJKZ-34-Maradq Vaccine Unknown 10/20/2020 Administered XCOIE-59-Ukmzqy Vaccine Unknown 11/10/2020 Administered Social History Tobacco [...] Status W/U Status Risk Notes Problem Thyrotoxicosis (73072073) 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) Active confirmed Problem Polycystic ovary syndrome (disorder) (912228184) Polycystic ovarian syndrome (E28.2) Active confirmed Problem Vitamin D deficiency (15290024) Vitamin D deficiency, unspecified (E55.9) Active confirmed Problem Epilepsy (32863728) Epilepsy, unspecified, not intractable, without status epilepticus (G40.909) Active confirmed Problem Plantar fascial fibromatosis (15279760) Plantar fascial fibromatosis (M72.2) Active confirmed Problem Menopause (467260426) Menopausal and female climacteric states (N95.1) Active confirmed Problem BMI 25-29 - overweight (890731330) Body mass index (BMI) 29.0-29.9, adult (Z68.29) Active confirmed Problem Family history of malignant neoplasm of gastrointestinal tract (851700228) Family history of malignant neoplasm of digestive organs (Z80.0) Active confirmed Problem Family history of malignant neoplasm of breast (395097666) Family history of malignant neoplasm of breast (Z80.3) Active confirmed Problem Allergy to penicillin (40056299) Allergy status to penicillin (Z88.0) Active confirmed Problem Thrombophilia (675170055) Other thrombophilia (D68.69) Problem resolved confirmed Problem Paroxysmal atrial fibrillation (377659446) Paroxysmal atrial fibrillation (I48.0) Problem resolved confirmed Problem Supraventricular tachycardia (disorder) (9517152) Supraventricular tachycardia, unspecified (I47.10) Problem resolved confirmed Vital Signs Heart Rate 82 /min 06/10/2025 Temperature 97.0 degrees Fahrenheit 06/10/2025 Oximetry 98 % 06/10/2025 Blood pressure diastolic 70 mm Hg 11/26/2024 Height 69 in 06/10/2025 Blood pressure systolic 116 mm Hg 11/26/2024 Weight 204.4 lbs 06/10/2025 BMI 30.18 kg/m2 06/10/2025 Encounters Encounter Location Date Provider Diagnosis [facility] MD [address] [id number] 11/26/2024 [facility] Epilepsy, unspecifie d, not [...] female climacteric states N95.1 [facility] MD [address] [id number] 06/10/2025 [facility] Family history of malignant neoplasm of breast Z80.3 and Other specified acquired deformities of musculoskeletal system M95.8 [facility] MD [address] [id number] 10/21/2024 Milvia Iqbal MD [address] [id number] 03/16/2025 Milvia Iq[facility] MD [address] [id number] 03/26/2025 Milvia Iq[facility] MD [address] [id number] 04/09/2025 Milvia Ibqal MD [address] [id number] 04/30/2025 [facility] Encounter for genera l adult medical examination without abnormal findings Z00.00 Mil[facility] MD [address] [id number] 06/18/2025 [facility] Other specified acqu ired deformities of musculoskeletal system M95.8 [facility] [address] [id number] 06/23/2025 [facility] Other specified acqu ired deformities of musculoskeletal system M95.8 Assessments Encounter Date Diagnosis (ICD Code) Assessment Notes Treatment Notes Treatment Clinical Notes Section Notes 11/26/2024 Epilepsy, unspecified, not intractable, without status epilepticus (ICD-10 - G40.909) Stable with current medical therapy. She has not had follow-up with neurology for some time and feels she is doing well as is. 04/30/2025 Encounter for general adult medical examination without abnormal findings (ICD-10 - Z00.00) 06/10/2025 Other specified acquired deformities of musculoskeletal system (ICD-10 - M95.8) The abnormality is actually the right clavicle head. There is a bony deformity. She says this only became noticeable about 4 months ago and there has not been any injury nor trauma. Given the lack of injury or trauma this is nontraumatic and may represent a neoplastic or inflammatory process. Can start with an x-ray and then MRI of the clavicular head to evaluate for underlying etiology of the abnormality. 06/10/2025 Family history of malignant neoplasm of breast (ICD-10 - Z80.3) Her brother recently from metastatic pancreatic cancer. He had BRCA2. She herself has had BRCA testing that was negative. Fortunately she does not have genetically mediated increased risk however her Tyrer-Cuzick analysis from 2014 revealed that her lifetime risk is 20.7%. She is considered high risk. 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 At this point recommend combination of MRI and mammograms to screen for breast cancer 06/18/2025 Other specified acquired deformities of musculoskeletal system (ICD-10 - M95.8) 06/23/2025 Other specified acquired deformities of musculoskeletal system (ICD-10 - M95.8) 11/26/2024 Paroxysmal atrial fibrillation (ICD-10 - I48.0) [...] syntax. Also labs were reviewed with patient. 06/10/2025 Other This note was created with a combination of voice dictation recognition software in combination with voice recognition software with Artificial Intelligence as allowed by patient consent. It may contain errors of grammar and syntax. Also labs were reviewed with patient. Plan Of Treatment Pending Test Test Name Order Date CT Scan : Shoulder 06/23/2025 25OH VITAMIN D 03/16/2019 25OH VITAMIN D [...] MMR (MEASLES, MUMPS, RUBELLA) IGG TITER 03/16/2019 MR Breast Bilateral 06/10/2025 COVID and INFLUENZA Rapid Assay 05/15/20 23 Thyroxine (T4) Free, Direct-[id number] 11/21 Urinalysis, Complete-[id number] 11/26/2024 Urinalysis, Complete-37010611/22/2023 TSH-[id number] 11/22/2023 CBC With Differential/Platelet- CBC With Differential/Platelet- Vitamin D, 60-Raxyhjq-[id number] 11/22/2023 Vitamin D, 04-Wvafunq-505040 11/26/2024 Comp. Metabolic Panel (14)-2024 Comp. Metabolic Panel (14)-2023 LP+Non-HDL Cholesterol-[id number] 11/22/2023 LP+Non-HDL Cholesterol-178119 11/26/2024 HCV Antibody-[id number] 11/26/2024 HCV Antibody-[id number] 11/22/2023 Next Appt Details Provider Name:Milvia Iqbal , 07/19/2025 08:45:00 AM, [address] [place] [address], [phone], Provider Name:Milvia Iqbal , 12/06/2025 03:45:00 PM, [address] [place] [address], [phone], Insurance Providers Payer Name Payer Address Payer Phone Subscriber Number Group Number Insured Name Patient Relationship to Insured Coverage Start Date Coverage End Date [employer] [place] P[place] [id number] [place] [address] [id number] Myra Mccall Self - patient is the [...]
--- OUTSIDE RECORDS SUMMARY | 2025-07-02 13:51 | XMS_ITS | Encounter Summary ---
Author Organization [facility] Address [address] [place] [address] Care Team Providers Care Hearing Therapist Name Role Phone Milvia Iqbal MD Primary Care Provider [phone] Encounter Details Date Type Department Care Team (Latest Contact Info) Description 02/03/2025 Lab Requisition [facility] Main Lab [address] [place] [address] Vaishnavi Pereyra MD [address] [phone] Encounter for gynecological examination (general) (routine) without [...] Final Result [facility] [address] [place] [address], * (ABNORMAL) Pap smear (02/02/2025 12:00 AM [...] screening system. Technical cytopathology services provided by [facility], at [address] [place] [address], [place] [address] (CLIA # [id number]/Kuldip Coulter MD, Clerical Adviser.) 02/08/2025 12:11 PM EDT [facility] Console Pap Interpretation Reported 02/08/2025 12:11 PM [facility] Brushing/Spatula Cervix uteri structure / Unknown 02/02/2025 02/03/2025 7:14 AM EDT us Vaishnavi Pereyra MD LAB CYTOLOGY ORDERABLES Final Result [facility] [address] [place] [address], documented in this encounter Visit Diagnoses Diagnosis Encounter for gynecological examination (general) (routine) without abnormal findings documented in this encounter Care Teams Hearing Therapist Relationship Specialty Start Date End Date Milvia Iqbal MD [address] [place] [id number] PCP - General Internal Medicine 11/18/12 documented as of this encounter
== END 2025-07-02 13:45 | disposition home or self-care (01) ==
LOC: HO.MRI 13:44
PROVIDERS: PCP Internal Medicine; Visit Provider Internal Medicine
DX: M95.8 Other specified acquired deformities of musculoskeletal system (principal); Z80.3 Family history of malignant neoplasm of breast
CPT/HCPCS: 77049; A9585

== ENCOUNTER → 2025-07-02 13:52 | Outpatient (BNV) | payer OTHER, SELFPAY | PROVIDERS: PCP Internal Medicine; Visit Provider Radiology Body Imaging | DX: C50.919 Malignant neoplasm of unspecified site of unspecified female breast (principal) | CPT/HCPCS: 77049 ==